=== PATIENT | male | born 1945 | race Caucasian/White ===

== ENCOUNTER 2024-03-19 04:15 | Emergency (ER) | payer MEDICARE, BC, SELFPAY ==
--- OUTSIDE RECORDS SUMMARY | 2024-03-19 04:17 | XMS_ITS | Continuity of Care Document ---
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
[2024-03-19 04:27] VITALS: BP 143/86; PULSE 77; RESP 16; TEMP 36.6; O2SAT 97; BMI 24.4
[2024-03-19 04:30] LABS: Appearance Urine Slightly Cloudy (Clear); Bilirubin Urine 3+ (Negative); Blood Urine 3+ (Negative); Color Urine Red (Yellow); Glucose Urine Negative (Negative); Ketones Urine 1+ (Negative); Leukocyte Esterase Urine 3+ (Negative); Nitrite Urine Positive (Negative); Protein Urine 3+ (Negative); Specific Gravity Urine 1.015 (1.000-1.030); pH Urine 5.5 (5.0-8.5)
[2024-03-19 04:32] LABS: Bacteria Urine Moderate; RBC Urine >100 (0-2); WBC Urine 25-50 (0-5)
--- NOTE | 2024-03-19 04:35 | ED.MALEGU ---
HPI - Male Genitourinary General Time Seen by Provider: 04:35 Date Seen: 03/19/24 Chief complaint: Urogenital Problems, Male Stated complaint: either a kidney stone or UTI Time Seen by Provider: 03/19/24 04:21 Source: patient and RN notes reviewed Mode of arrival: ambulatory Limitations: no limitations History of Present Illness HPI Narrative: This 78 year old male is coming in with onset of urinary frequency, dysuria and subsequent hematuria starting around midnight. He has a history of urinary tract infections, has never had a kidney stone. He was wondering if it possibly could be a kidney stone because of the progression of the rapid development of blood in the urine. He is having no back pain, no abdominal pain, no fevers, no nausea. He got up to urinate around midnight in then started having frequency and burning with urination. He went to the bathroom a few times and then started noticing blood in the blood has rapidly progressed in its intensity. He denies any history of kidney problems. 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 He is on no blood thinners. Patient has never been to our facility before. He has no records through [facility] either. Related Data Home Medications ?Medication ?Instructions ?Recorded ?Confirmed atorvastatin .ROUTE 03/19/24 lisinopril 20 mg tablet 20 mg PO DAILY 03/19/24 03/19/24 Allergies Allergy/AdvReac Type Severity Reaction Status Date / Time Penicillins Allergy Mild Rash Verified 03/19/24 04:31 Review of Systems Narrative: As per HPI. Exam Const: Vital Signs, click to edit/add: Vital Signs - 24 hr 03/19/24 04:27 Temperature 97.8 F Pulse Rate [Pulse Oximeter] 77 Respiratory Rate 16 Blood Pressure [Ri ght Upper Arm] 143/86 H Pulse Oximetry 97 Oxygen Delivery Me thod Room Air This patient is ambulatory into the ED, gait normal. He is alert, interactive, no apparent distress. Sclera clear, speech normal, wearing a mask. Lungs are clear, good air entry, no wheezing or crackles. No CVA tenderness. Pacemaker left anterior chest wall. CV regular rate and rhythm, no murmur, normal S1-S2. Abdomen is soft, nontender, nondistended, no organomegaly, no rebound or guarding. Documenting provider has reviewed patient's vital signs: yes Course Course ED Course: Patient's urinalysis is back in definitely is showing hemorrhagic UTI. We will culture this. He clinically seems quite find to be able to take course of oral antibiotics. Given male status, age and penicillin allergy, will consider covering with Cipro. Vital Signs Vital signs: Initial Vital Signs Temperature 97.8 F 03/19/24 04:27 Temperature Source Temporal Artery Scan 03/19/24 04:27 Pulse Rate 77 03/19/24 04:27 Respiratory Rate 16 03/19/24 04:27 Blood Pressure 143/86 H 03/19/24 04:27 Blood Pressure Mean 105 03/19/24 04:27 Blood Pressure Position Sitting 03/19/24 04:27 Pulse Oximetry 97 03/19/24 04:27 Oxygen Delivery Method Room Air 03/19/24 04:27 Vital Signs Temperature 97.8 F 03/19/24 04:27 Pulse Rate 77 03/19/24 04:27 Respiratory Rate 16 03/19/24 04:27 Blood Pressure 143/86 H 03/19/24 04:27 Pulse Oximetry 97 03/19/24 04:27 Oxygen Delivery Method Room Air 03/19/24 04:27 Temperature 97.8 F 03/19/24 04:27 Pulse Rate 77 03/19/24 04:27 Respiratory Rate 16 03/19/24 04:27 Blood Pressure 143/86 H 03/19/24 04:27 Pulse Oximetry 97 03/19/24 04:27 Oxygen Delivery Method Room Air 03/19/24 04:27 MDM - Male Genitourinary Lab Data Attestation: I reviewed the patient's lab results. Labs: Lab Results 03/19/24 Range/Units 04:28 Urine Color Red A (Yellow) Urine Appearance Slightly Cloudy A (Clear) Urine pH 5.5 (5.0-8.5) Ur Specific [place] 1.015 (1.000-1.030) Urine Protein 3+ A (Negative) Urine Glucose (UA) Negative (Negative) Urine Ketones 1+ A (Negative) Urine Blood 3+ A (Negative) Urine Nitrite Positive A (Negative) Urine Bilirubin 3+ A (Negative) Urine Urobilinogen 2.0 A (0.2-1.0) Ur Leukocyte Esterase 3+ A (Negative) Urine RBC >100 A (0-2) Urine WBC 25-50 A (0-5) Ur Squamous Epith Cells None (None-Few) Urine Bacteria Moderate A (None) Discharge Plan Discharge Clinical Impression: Urinary tract infection Qualifiers: Urinary tract infection type: acute cystitis Hematuria presence: with hematuria Qualified Code(s): N30.01 - Acute cystitis with hematuria Patient Disposition: Home, Self-Care Condition: Stable Instructions: Urinary Tract Infection in Men (ED) Additional Instructions: Start Cipro now, take 500 mg twice daily for 7 days. Drink plenty of fluids. If you are not improving in your symptoms in the next 24-48 hours, worsen at any point, develop abdominal pain, develop fever, develop vomiting or other concerns, do need to be re-evaluated. We will culture the urine to make sure you are on the appropriate antibiotic and will contact you if there is any need to change antibiotics. Activity Level: Activity as Tolerated Prescriptions: No Action lisinopril 20 mg tablet 20 mg PO DAILY atorvastatin .ROUTE Stand Alone Forms: [employer] Info Instructions
--- OUTSIDE RECORDS SUMMARY | 2024-03-19 05:16 | XMS_ITS | Continuity of Care Document ---
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
--- OUTSIDE RECORDS SUMMARY | 2024-03-19 05:16 | XMS_ITS | Clinical Summary ---
Author Organization [facility] Address [address] [place] [address]. [place] [address] Care Team Providers Care Corn Chip Maker Name Role Phone Ansley Denney MD Primary Care Provider [phone] Ansley Denney MD Unavailable [phone] Lan Ledbetter MD Unavailable [phone] Allergies Active Allergy Reactions Criticality Noted Date Comments Penicillins Hives 02/01/2012 Childhood Medications aspirin-acetamino phen-caffeine (EXCEDRIN MIGRAINE) 250-250-65 mg per tablet [ASPIRIN-ROHIT TAMINOPHEN-C AFFEINE (EXCEDRIN MIGRAINE) 250-250-65 MG PER TABLET] Take 1 tablet by mouth every 6 (six) hours as needed for pain. 05/27/19 19 Active acetaminophen (TYLENOL) 325 MG tablet [ACETAMINOPH EN (TYLENOL) 325 MG TABLET] Take 650 mg by mouth every 6 (six) hours as needed for pain. 05/27/19 19 Active glucosamine-chond roitin 500-400 mg tablet Take 1 tablet by mouth daily 02/19/20 20 Active magnesium oxide 250 mg magnesium Tab [MAGNESIUM OXIDE 250 MG MAGNESIUM TAB] Take by mouth. 02/19/20 20 Active multivit-min/ferr ous fumarate (MULTI VITAMIN ORAL) [MULTIVIT-NY N/FERROUS FUMARATE (MULTI VITAMIN ORAL)] Take by mouth. 02/19/20 20 Active ascorbic acid, vitamin C, (VITAMIN C) 1000 MG tablet [ASCORBIC ACID, VITAMIN C, (VITAMIN C) 1000 MG TABLET] Take 1,000 mg by mouth daily. 02/19/20 20 Active [place]-3 Fatty Acids (FISH OIL PO) Take 2,400 mg by mouth daily 09/30/19 22 Active loratadine (CLARITIN) 10 MG tablet Take 10 mg by mouth daily Active atorvastatin (LIPITOR) 20 MG tabletIndications :Nonrheumatic mitral valve regurgitation Take 1 tablet (20 mg) by mouth daily 90 tablet 3 06/07/19 24 Active ezetimibe (ZETIA) 10 MG tabletIndications :Mixed hyperlipidemia Take 1 tablet (10 mg) by mouth daily 90 tablet 3 06/07/19 24 Active famotidine (PEPCID) 20 MG tabletIndications :Gastroesophageal reflux disease without esophagitis TAKE 1 TABLET BY MOUTH 2 TIMES A DAY NEEDED FOR HEARTBURN. 180 tablet 3 08/24/19 24 Active SUMAtriptan (IMITREX) 100 MG tabletIndications :Migraine without aura and without status migrainosus, not intractable TAKE 1/2 TO 1 TABLET BY MOUTH EVERY 2 HOURS NEEDED FOR MIGRAINE (MAX OF 200 MG/24 HOURS). 18 tablet 2 08/24/19 24 Active lisinopril (ZESTRIL) 5 MG tabletIndications :Benign essential hypertension,Abdo bárbara aortic aneurysm dissection (H) TAKE 1 TABLET BY MOUTH EVERY DAY 90 tablet 02/29/20 24 Active lisinopril (ZESTRIL) 5 MG tabletIndications :Benign essential hypertension,Abdo bárbara aortic aneurysm dissection (H) TAKE 1 TABLET BY MOUTH EVERY DAY 90 tablet 1 09/10/19 24 024 Discontinued Active Problems Problem Noted Date Diagnosed Date Ascending aorta dilatation 05/25/2023 Nonrheumatic aortic valve insufficiency 05/25/19 24 Abdominal aortic aneurysm dissection 07/22/2022 Mitral valve regurgitation 01/21/2021 Congenital insufficiency of aortic valve 021 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 01/21/2021 Complete heart block 10/16/2020 Abnormal echocardiogram 10/16/2020 Essential hypertension 10/16/2020 Syncope 10/10/2020 Hyperlipidemia 07/18/2014 Peripheral Neuropathy Overview (08/04/2021): Created by Conversion Replacement Utility updated for latest IMO load Created by Conversion Replacement Utility updated for latest IMO load Snoring (Symptom) Overview (08/13/2020): Created by Conversion Prediabetes Overview (08/13/2020): Created by Conversion Common Migraine (Without Aura) Overview (08/04/2021): Created by Conversion Replacement Utility updated for latest IMO load Created by Conversion Replacement Utility updated for latest IMO load Esophageal Reflux Overview (08/13/2020): Created by Conversion Diverticulitis of colon Overview (08/04/2021): Created by Conversion Replacement Utility updated for latest IMO load Created by Conversion Replacement Utility updated for latest IMO load Resolved Problems Problem Noted Date Diagnosed Date Resolved Date SVT (supraventricular tachycardia) 01/21/2021 01/21/2021 Essential hypertension 10/10/202010/15 CKD (chronic kidney disease) stage 2, GFR 60-89 ml/min 02/12/2015 10/15/2020 Anemia 02/12/2015 08/04/2021 BPH (benign prostatic hyperplasia) 08/04/2021 Overview (08/13/2020): Created by Conversion Cervicalgia 07/30/2021 Overview (08/13/2020): Created by Conversion Incomplete Emptying Of Bladder 08/04/2021 Overview (08/13/2020): Created by Conversion Joint Pain, Localized In The Shoulder 07/30/2021 Overview (08/13/2020): Created by Conversion Encounters Date Type Department Care Team Description 03/15/2024 [facility] [address] [place] [address] Odilon Cleaning DO 03/14/2024 Ancillary Procedure [address] [place] [phone] Nathan Drummond MD Pacemaker; Sick sinus syndrome (H); Complete heart block (H) 03/08/2024 7:46 AM SENIOR ATTORNEY - 03/08/2024 11:59 PM SENIOR ATTORNEY Hospital Encounter [address] [address] Odilon Cleaning DO Discharge Disposition: Home or Self Care 03/08/2024 [facility] Medical Advice [address] [place] [address] Odilon Cleaning DO 03/08/2024 Travel 03/04/2024 [facility] Medical Advice [address] [place] [address] Odilon Cleaning DO CAD (coronary artery disease) (Primary Dx); HLD (hyperlipidemia); HTN (hypertension); Coronary artery calcification seen on CT scan 03/04/2024 [facility] Medical Advice [place] [address] [address] [place] [address] Lan Ledbetter MD 02/28/[address] [place] [address] Odilon Cleaning DO Medication Refill from Last 3 Months Immunizations Name Administration Dates Next Due Flu, Unspecified 12/28/2015 Influenza (High Dose) Trival ent,PF (Fluzone) 11/30/2018,01/05/2015 Influenza (IIV3) PF 12/10/2011,12/03/2010 Influenza (prior to 2023) 12/24/2016,12/28/2015 Influenza Vaccine 65+ (Fluzone HD) 12/06/2021,,12/14/2019 Influenza Vaccine >6 months,quad, PF 01/10/2018 Pneumo Conj 13-V (2010&after) 12/12/2014 Pneumococcal 23 valent 03/25/2016 TDAP (Adacel,Boostrix) 07/18/2014 Zoster recombinant adjuvanted (SHINGRIX) 020,07/06/2018 Zoster vaccine, live 07/18/2014 Family History Medical History Relation Comments Heart Disease Father Dementia Mother Hypertension Mother Osteoporosis Mother Relation Status Comments Father Mother Social History Tobacco Use Types Packs/Day Years Used Date Smoking Tobacco: Never Passive Smoke Exposure: Never Smokeless Tobacco: Never Tobacco Cessation:Counseling Given: Not Answered Alcohol Use Standard Drinks/Week Comments Yes 0 (1 standard drink = 0.6 oz pure alcohol) Alcoholic Drinks/day: 1 glass wine daily Social Connection and Isolation Panel [NHANES] A nswer Date Recorded Frequency of Communication with Friends and Fami ly Not on file 08/19/2023 How often do you get together with friends or re latives? Once a week 08/19/2023 Attends Denominational Services Not on file 08/18 Active Member of Clubs or Organizations Not on f ile 08/19/2023 Attends Club or Organization Meetings Not on benjie e 08/19/2023 Marital Status Not on file 08/19/2023 PHQ-2 Answer Date Recorded PHQ-2 Score 0 08/24/2023 [facility] Occupat ional Health - Occupational Stress Questionnaire Answer Date Recorded Do you feel stress - tense, restless, nervous, or anxious, or unable to sleep at night because your mind is troubled all the time - these days? Not at all 08/19/2023 Exercise Vital Sign Answer Date Recorde d On average, how many days pe r week do you engage in moderate to strenuous exercise (like a brisk walk)? 5 days 08/19/2023 On average, how many minutes do you engage in exercise at this level? 30 min 08/19/2023 Adolescent Education Answer Date Record ed Getting School Help Needed Not on file 11/21 Food Insecurity Answer Date Recorded Within the past 12 months, d id you worry that your food would run out before you got money to buy more? No 08/19/2023 Within the past 12 months, d id the food you bought just not last and you didn t have money to get more? No 08/19/2023 Housing Stability Answer Date Recorded Do you have housing? (Isidra menjivar is defined as stable permanent housing and does not include staying ouside in a car, in a tent, in an abandoned building, in an overnight long term, or couch-surfing.) Yes 08/19/2023 Are you worried about losing your housing? No 08/19/2023 Financial Resource Strain Answer Date R ecorded Within the past 12 months, h ave you or your family members you live with been unable to get utilities (heat, electricity) when it was really needed? No 08/19/2023 Transportation Needs Answer Date Record ed Within the past 12 months, h as lack of transportation kept you from medical appointments, getting your medicines, non-medical meetings or appointments, work, or from getting things that you need? No 08/19/2023 Interpersonal Safety Answer Date Record ed Do you feel physically and e motionally safe where you currently live? Yes 08/24/2023 Within the past 12 months, h ave you been hit, slapped, kicked or otherwise physically hurt by someone? No 08/24/2023 Within the past 12 months, h ave you been humiliated or emotionally abused in other ways by your partner or ex-partner? No 08/24/2023 Sex and Gender Information Value Date Recorded Sex Assigned at Not on file Legal Sex Male 5:14 PM CDT Gender Identity Not on file Sexual Orientation Straight 08/09/2023 8: 33 AM CDT Travel History Travel Start Travel End [place] 02/22/2024 03/07/2024 Last Filed Vital Signs Vital Sign Reading Time Taken Comments Blood Pressure 136/70 08/24/2023 12:45 PM CDT Pulse 61 08/24/2023 12:45 PM CDT Temperature 36.8 C (98.2 F) 08/24/2023 12:45 PM CDT Respiratory Rate 16 08/24/2023 12:45 PM CDT Oxygen Saturation 97% 08/24/2023 12:45 PM CDT Inhaled Oxygen Concentration - - Weight 79.8 kg (176 lb) 08/24/2023 12:45 PM CDT Height 180.3 cm (5' 11) 08/24/2023 12:45 PM CDT Body Mass Index 24.55 08/24/2023 12:45 PM CDT Plan of Treatment Upcoming Encounters Date Type Department Care Team (Late st Contact Info) Description 05/26/2024 1:00 PM CDT Ancillary Procedure [address], [address] [place] [phone] Nathan Drummond MD [address] [place] [phone] 05/26/2024 2:20 PM CDT Office Visit [address] [place] [phone] Nathan Drummond MD [address] [place] [phone] Odilon Cleaning, DO [address] [place] [address] Health Maintenance Due Date Last Done Comments RSV VACCINE (1 - 1-dose 75+ series) 2021 PHQ-2 (once per calendar year) 2024 08/24/2023, 08/18/2023, 08/11/2022, Additional history exists DTAP/TDAP/TD IMMUNIZATION (2 - Td or Tdap) 07/18/2024 07/18/2014 ANNUAL REVIEW OF HM ORDERS 08/23/2024 08/24/2023, BMP 08/23/2024 08/24/2023, 07/30, 07/30/2021, Additional history exists FALL RISK ASSESSMENT 08/23/2024 08/24/2023, 08/11/2022, 07/22/2022, Additional history exists LIPID 08/23/2024 08/24/2023, 07/30, 07/30/2021, Additional history exists MEDICARE ANNUAL WELLNESS VISIT 08/23/2024 08/24/2023, 08/11/2022, 07/30/2021, Additional history exists GLUCOSE 08/23/2026 08/24/2023, 07/30, 07/30/2021, Additional history exists ADVANCE CARE PLANNING 08/18/2027 08/17/2022 , 08/04/2021, 02/19/2020, Additional history exists Pneumococcal Vaccine: 50+ Years Completed 03/25/2016, 12/12/2014 ZOSTER IMMUNIZATION Completed 03/27/2019, 07/06/2018, 07/18/2014 COLONOSCOPY Discontinued 04/04/2021, 12/24/2008 COLORECTAL CANCER SCREENING Discontinued HEPATITIS C SCREENING Completed 07/30/2021 COVID-19 Vaccine Completed 10/31/2023, 06/2023, 02/08/2022, Additional history exists INFLUENZA VACCINE Completed 10/31/2023, , 12/26/2020, Additional history exists CT COLONOGRAPHY Discontinued FIT Discontinued FLEX SIG Discontinued HPV IMMUNIZATION Aged Out No longer e ligible based on patient's age to complete this topic MENINGITIS IMMUNIZATION Aged Out No l onger eligible based on patient's age to complete this topic RSV MONOCLONAL ANTIBODY Aged Out No l onger eligible based on patient's age to complete this topic sDNA (Cologuard) Discontinued Medical Devices Implanted Type Area Blanchard Grinder Operator Device Identifier Shelf Expiration Date Model / Serial / Lot Imp Lead Pacing Bipolar Capsurefix Novus 52cm 5076-52 - [id number] Implanted:Qty : 1 on 10/16/2020 by Zbigniew Arreaga MD at [facility] Leads N/A: Right Atrium [employer] 08/22/2022 5076-52 / [id number] / [id number] Imp Lead Pacing Bipolar Capsurefix Novus 58cm 5076-58 - [id number] Implanted:Qty : 1 on 10/16/2020 by Zbigniew Arreaga MD at [facility] Leads N/A: Right Ventricle [employer] 08/06/2022 5076-58 / [id number] / [id number] Medtronic I* 5076 Capsurefix Novus Mri Surescan [id number] Implanted: (Quantity not on file) Leads [employer] 5076 CAPSUREFIX NOVUS MRI SURESCAN / [id number] / Medtronic I* 5076 Capsurefix Novus Mri Surescan [id number] Implanted: (Quantity not on file) Leads [employer] 5076 CAPSUREFIX NOVUS MRI SURESCAN / [id number] / Pacemaker [place] Mri Xt - [id number] Implanted:Qty : 1 on 10/16/2020 by Zbigniew Arreaga MD at [facility] Pacemaker [employer] 02/11/2022 [id number] / [id number] / [id number] Procedures Procedure Name Priority Date/Time Associated Diagnosis Comments INTERROGATION DEVICE EVAL REMOTE PACER UP TO 90 DAYS Routine 03/14/2024 10:23 AM SENIOR ATTORNEY Pacemaker Sick sinus syndrome (H) Complete heart block (H) ECHO EXERCISE STRESS TEST WITH CONTRAST Routine 03/08/2024 9:03 AM SENIOR ATTORNEY CAD (coronary artery disease) HLD (hyperlipidemia) HTN (hypertension) Coronary artery calcification seen on CT scan LIPID REFLEX TO DIRECT LDL PANEL Routine 08/24/2023 1:49 PM CDT Mixed hyperlipidemia COMPREHENSIVE METABOLIC PANEL Routine 08/24/2023 1:49 PM CDT Essential hypertension HEPATITIS C SCREEN REFLEX TO HCV RNA QUANT AND GENOTYPE Routine 07/30/2021 12:29 PM CDT Need for hepatitis C screening test COLONOSCOPY - HIM SCAN 04/04/2021 12:00 AM SENIOR ATTORNEY from Last 3 Months or Most Recently Relevant to Health Maintenance Results * INTERROGATION DEVICE EVAL REMOTE PACER UP TO 90 DAYS (03/14/2024 10:23 AM SENIOR ATTORNEY) Date Time Interrogation Session [id number] [employer] Implantable Pulse Generator Blanchard Grinder Operator Medtronic [employer] Implantable Pulse Generator Model [id number] Nery XT MRI [employer] Implantable Pulse Generator Serial Number [id number] [employer] Type Interrogation Session Remote Scheduled [employer] Clinic [facility] [employer] Implantable Pulse Generator Type Pacemaker [employer] Implantable Pulse Generator Implant Date 20201016 [employer] Implantable Lead Blanchard Grinder Operator Medtronic [employer] Implantable Lead Model 5076 CapSureFix Novus MRI SureScan [employer] Implantable Lead Serial Number [id number] [employer] Implantable Lead Implant Date 20201016 [employer] Implantable Lead Polarity Type Bipolar Lead [employer] Implantable Lead Location Detail 1 UNKNOWN [employer] Implantable Lead Location Right Atrium [employer] Implantable Lead Connection Status Connected [employer] Implantable Lead Blanchard Grinder Operator Medtronic [employer] Implantable Lead Model 5076 CapSureFix Novus MRI SureScan [employer] Implantable Lead Serial Number [id number] [employer] Implantable Lead Implant Date 20201016 [employer] Implantable Lead Polarity Type Bipolar Lead [employer] Implantable Lead Location Detail 1 UNKNOWN [employer] Implantable Lead Special Function 58cm [employer] Implantable Lead Location Right Ventricle [employer] Implantable Lead Connection Status Connected [employer] [place] Setting Mode (NBG Code) MVP_[id number] [employer] [place] Setting Lower Rate Limit 50 {beats}/ min [employer] [place] Setting Maximum Tracking Rate 130 {beats}/ min [employer] [place] Setting Maximum Sensor Rate 130 {beats}/ min [employer] [place] Setting Hysterisis Rate DISABLED [employer] [place] Setting Night Rate 40 {beats}/ min [employer] [place] Setting PILLO Delay Low 150 ms [employer] [place] Setting PAV Delay Low 180 ms [employer] [place] Setting AT Mode Switch Rate 171 {beats}/ min [employer] Lead Channel Setting Sensing Polarity Bipolar [employer] Lead Channel Setting Sensing Anode Location Right Atrium [employer] Lead Channel Setting Sensing Anode Terminal Ring [employer] Lead Channel Setting Sensing Cathode Location Right Atrium [employer] Lead Channel Setting Sensing Cath[place] Terminal Tip [employer] Lead Channel Setting Sensing Sensitivity 0.45 mV [employer] Lead Channel Setting Sensing Polarity Bipolar [employer] Lead Channel Setting Sensing Anode Location Right Ventricle [employer] Lead Channel Setting Sensing Anode Terminal Ring [employer] Lead Channel Setting Sensing Cathode Location Right Ventricle [employer] Lead Channel Setting Sensing [place] Terminal Tip [employer] Lead Channel Setting Sensing Sensitivity 0.9 mV [employer] Lead Channel Setting Pacing Polarity Bipolar [employer] Lead Channel Setting Pacing Anode Location Right Atrium [employer] Lead Channel Setting Pacing Anode Terminal Ring [employer] Lead Channel Setting Sensing Cathode Location Right Atrium [employer] Lead Channel Setting Sensing Cath[place] Terminal Tip [employer] Lead Channel Setting Pacing Pulse Width 0.4 ms [employer] Lead Channel Setting Pacing Amplitude 1.5 V [employer] Lead Channel Setting Pacing Capture Mode Adaptive [employer] Lead Channel Setting Pacing Polarity Bipolar [employer] Lead Channel Setting Pacing Anode Location Right Ventricle [employer] Lead Channel Setting Pacing Anode Terminal Ring [employer] Lead Channel Setting Sensing Cathode Location Right Ventricle [employer]IC Lead Channel Setting Sensing Cath[place] Terminal Tip [employer] Lead Channel Setting Pacing Pulse Width 0.4 ms [employer] Lead Channel Setting Pacing Amplitude 1.5 V [employer] Lead Channel Setting Pacing Capture Mode Adaptive MEDTRON[employer] Zone Setting Type Category VF [employer]IC Zone Setting Vendor Type Category V High Rate [employer] Zone Setting Type Category VT [employer]TR[employer]IC Zone Setting Vendor Type Category FastVT [employer]ONIC Zone Setting Type Category VT [employer]TR[employer]IC Zone Setting Vendor Type Category VT [employer]TR[employer]IC Zone Setting Type Category VT [employer]TR[employer]IC Zone Setting Vendor Type Category MonVT [employer]IC Zone Setting Status Monitor [employer]IC Zone Setting Detection Interval 400 ms MEDTRONIC Zone Setting Type Category ATRIAL_FIBRILLATI ON MEDTRONIC Zone Setting Vendor Type Category FastATAF [employer] Zone Setting Status Monitor [employer]IC Zone Setting Detection Interval 200 ms MEDTR[employer]IC Zone Setting Type Category AT/AF [employer] Zone Setting Status Active [employer] Zone Setting Detection Interval 350 ms MEDTRONIC Zone Setting Type Category BRADYCARDIA [employer]IC Lead Channel Impedance Value 418 ohm [employer] Lead Channel Impedance Value 342 ohm [employer] Lead Channel Sensing Intrinsic Amplitude 3.5 mV [employer] Lead Channel Sensing Intrinsic Amplitude 3.5 mV [employer] Lead Channel Pacing Threshold Amplitude 0.25 V [employer] Lead Channel Pacing Threshold Pulse Width 0.4 ms [employer] Lead Channel Impedance Value 456 ohm [employer] Lead Channel Impedance Value 342 ohm [employer] Lead Channel Sensing Intrinsic Amplitude 8.125 mV [employer] Lead Channel Sensing Intrinsic Amplitude 8.125 mV [employer] Lead Channel Pacing Threshold Amplitude 0.625 V [employer] Lead Channel Pacing Threshold Pulse Width 0.4 ms [employer] Battery Date Time of Measurements [id number] [employer] Battery Status OK [employer] Battery COMMUNITY OUTREACH DIRECTOR Trigger 2.625 [employer] Battery Remaining Longevity 141 mo [employer] Battery Voltage 3.02 V [employer] Lupillo Statistic Date Time Start [id number] [employer] [place] Statistic Date Time End [id number] [employer] [place] Statistic RA Percent Paced 12.24 % [employer] [place] Statistic RV Percent Paced 95.07 % [employer] [place] Statistic AP COMPUTER METEOROLOGIST Percent 11.34 % [employer] [place] Statistic COMPUTER METEOROLOGIST Percent 83.73 % [employer] [place] Statistic AP VS Percent 0.54 % [employer] [place] Statistic VS Percent 4.39 % [employer] Atrial Tachy Statistic Date Time Start [id number] [employer] Atrial Tachy Statistic Date Time End [id number] [employer] Atrial Tachy Statistic AT/AF [place] Percent 0 % [employer] Therapy Statistic Recent Date Time Start [id number] [employer] Therapy Statistic Recent Date Time End [id number] [employer] Therapy Statistic Total Date Time Start [id number] [employer] Therapy Statistic Total Date Time End [id number] [employer] Episode Statistic Recent Count 0 [employer] Episode Statistic Type Category AT/AF [employer] Episode Statistic Recent Count 0 [employer]IC Episode Statistic Type Category Patient Activated [employer] Episode Statistic Recent Count 0 [employer]TR[employer]IC Episode Statistic Type Category SVT [employer] Episode Statistic Recent Count 1 [employer]IC Episode Statistic Type Category VT [employer]TR[employer]IC Episode Statistic Recent Count 0 MEDTRONIC Episode Statistic Type Category VT [employer]TR[employer]IC Episode Statistic Recent Date Time Start [id number] [employer] Episode Statistic Recent Date Time End [id number] [employer] Episode Statistic Recent Date Time Start [id number] [employer] Episode Statistic Recent Date Time End [id number] [employer] Episode Statistic Recent Date Time Start [id number] [employer] Episode Statistic Recent Date Time End [id number] [employer] Episode Statistic Recent Date Time Start [id number] [employer] Episode Statistic Recent Date Time End [id number] [employer] Episode Statistic Recent Date Time Start [id number] [employer] Episode Statistic Recent Date Time End [id number] [employer]IC Episode Statistic Total Count 0 [employer]IC Episode Statistic Type Category AT/AF [employer] Episode Statistic Total Count 0 [employer] Episode Statistic Type Category Patient Activated [employer] Episode Statistic Total Count 293 [employer] Episode Statistic Type Category SVT [employer] Episode Statistic Total Count 23 [employer]IC Episode Statistic Type Category VT [employer]TR[employer]IC Episode Statistic Total Count 0 [employer]TR[employer]IC Episode Statistic Type Category VT [employer] Episode Statistic Total Date Time Start [id number] [employer]TR[employer]IC Episode Statistic Total Date Time End [id number] [employer]IC Episode Statistic Total Date Time Start [id number] [employer]IC Episode Statistic Total Date Time End [id number] [employer] Episode Statistic Total Date Time Start [id number] [employer]IC Episode Statistic Total Date Time End [id number] [employer]IC Episode Statistic Total Date Time Start [id number] [employer] Episode Statistic Total Date Time End [id number] [employer] Episode Statistic Total Date Time Start [id number] [employer]IC Episode Statistic Total Date Time End [id number] [employer] Episode Identifier 321 [employer] Episode Type Category VT [employer] Episode Date Time [id number] [employer] Episode Duration 1 s [employer] Anatomical Region Laterality Modality Other 03/14/2024 3:46 AM SENIOR ATTORNEY Narrative 03/15/2024 4:23 PM SENIOR ATTORNEY Encounter Type: routine remote pacemaker transmission. Device: Medtronic [place] Pacing % /Programmed: AP 12%, COMPUTER METEOROLOGIST 95% at AAI<=>DDD 50/130 ppm. Lead(s): stable. Battery longevity: 11yrs, 9mo estimated. Presenting: -COMPUTER METEOROLOGIST 45 bpm. Atrial high rates: since 11/26/23; none detected. Anticoagulant: None. Ventricular High rates: since 11/26/23; one ventricular high rate episode, appears to be NSVT 5bts. Comments: Normal device function. Plan: Patient scheduled for annual device check on 05/26/24 at 1:00PM at our [facility] location. [place] Martinezec, Device Specialist Device follow up for the entirety of having the Pacemaker, based on best practices determined by [employer] and in Compliance with Medicare guidelines. Continue remote device monitoring per patient plan. I have reviewed and interpreted the device interrogation, settings, programming, and encounter summary. The device is functioning within normal device parameters. I agree with the current findings, assessment and plan. Nathan Drummond MD [facility] ORDERAB LES Final Result * ECHO EXERCISE STRESS TEST WITH CONTRAST (03/08/2024 9:03 AM SENIOR ATTORNEY) [facility] Pharmacologic Protocol Stress Echo CARDIOLOGY RESULTS Test Type Treadmill CARDIOLOGY RESULTS Baseline HR 69 CARDIOLO GY RESULTS Baseline Systolic BP 156 CARDIOLOGY RESULTS Baseline Diastolic BP 79 CARDIOLOGY RESULTS Last Stress HR 128 CARDI OLOGY RESULTS Last Stress Systolic BP 168 CARDIOLOGY RESULTS Last Stress Diastolic BP 82 CARDIOLOGY RESULTS Target HR 122 CARDIOLOGY RESULTS PERCENT HR 85% CARDIOLOG Y RESULTS Exercise duration (min) 6 CARDIOLOGY RESULTS Exercise duration (sec) 30 CARDIOLOGY RESULTS Estimated workload 8.0 CARDIOLOGY RESULTS Pharm Test Reason Stopped CARDIOLOGY RESULTS Pharmacologic Symptoms CARDIOLOGY RESULTS Exercise Stage Reached CARDIOLOGY RESULTS ST Deviation Elevation V4 7.5mm CARDIOLOGY RESULTS Deviation Time II -3.8mm CARDI OLOGY RESULTS ST Elevation Amount V3 9.9mm CARDIOLOGY RESULTS ST Deviation Amount he II -5.2mm CARDIOLOGY RESULTS Final Resting BP 138/77 CAR DIOLOGY RESULTS Final Resting HR 68 CAR DIOLOGY RESULTS Max Treadmill Speed 3.4 CARDIOLOGY RESULTS Max Treadmill Grade 14.0 CARDIOLOGY RESULTS Peak Systolic BP 168/82 CAR DIOLOGY RESULTS Peak Diastolic BP 154/85 CA RDIOLOGY RESULTS Max HR 130 CARDIOLOGY RESULTS Stress Phase Resting CARDIOL OGY RESULTS Stress Resting Pt Position SUPINE CARDIOLOGY RESULTS Current HR 70 CARDIOLOG Y RESULTS Current BP 156/79 CARDIOLOG Y RESULTS Stress Phase Resting CARDIOL OGY RESULTS Stress Resting Pt Position STANDING CARDIOLOGY RESULTS Current HR 70 CARDIOLOG Y RESULTS Current BP 156/79 CARDIOLOG Y RESULTS Stress Phase Resting CARDIOL OGY RESULTS Stress Resting Pt Position MANUAL EVENT CARDIOLOGY RESULTS Current HR 123 CARDIOLOG Y RESULTS Current BP 168/82 CARDIOLOG Y RESULTS Stress Phase Stress CARDIOL OGY RESULTS Stage Minute EXE 00:00 CARDIOL OGY RESULTS Exercise Stage STAGE 1 CARDI OLOGY RESULTS Current HR 71 CARDIOLOG Y RESULTS Current BP 147/71 CARDIOLOG Y RESULTS Stress Phase Stress CARDIOL OGY RESULTS Stage Minute EXE 01:00 CARDIOL OGY RESULTS Exercise Stage STAGE 1 CARDI OLOGY RESULTS Current HR 91 CARDIOLOG Y RESULTS Current BP 147/71 CARDIOLOG Y RESULTS Stress Phase Stress CARDIOL OGY RESULTS Stage Minute EXE 02:00 CARDIOL OGY RESULTS Exercise Stage STAGE 1 CARDI OLOGY RESULTS Current HR 113 CARDIOLOG Y RESULTS Current BP 147/71 CARDIOLOG Y RESULTS Stress Phase Stress CARDIOL OGY RESULTS Stage Minute EXE 02:03 CARDIOL OGY RESULTS Exercise Stage STAGE 1 CARDI OLOGY RESULTS Current HR 114 CARDIOLOG Y RESULTS Current BP 162/78 CARDIOLOG Y RESULTS Stress Phase Stress CARDIOL OGY RESULTS Stage Minute EXE 03:00 CARDIOL OGY RESULTS Exercise Stage STAGE 2 CARDI OLOGY RESULTS Current HR 116 CARDIOLOG Y RESULTS Current BP 162/78 CARDIOLOG Y RESULTS Stress Phase Stress CARDIOL OGY RESULTS Stage Minute EXE 04:00 CARDIOL OGY RESULTS Exercise Stage STAGE 2 CARDI OLOGY RESULTS Current HR 118 CARDIOLOG Y RESULTS Current BP 162/78 CARDIOLOG Y RESULTS Stress Phase Stress CARDIOL OGY RESULTS Stage Minute EXE 04:34 CARDIOL OGY RESULTS Exercise Stage STAGE 2 CARDI OLOGY RESULTS Current HR 120 CARDIOLOG Y RESULTS Current BP 168/82 CARDIOLOG Y RESULTS Stress Phase Stress CARDIOL OGY RESULTS Stage Minute EXE 05:00 CARDIOL OGY RESULTS Exercise Stage STAGE 2 CARDI OLOGY RESULTS Current HR 121 CARDIOLOG Y RESULTS Current BP 168/82 CARDIOLOG Y RESULTS Stress Phase Stress CARDIOL OGY RESULTS Stage Minute EXE 05:14 CARDIOL OGY RESULTS Exercise Stage STAGE 2 CARDI OLOGY RESULTS Current HR 123 CARDIOLOG Y RESULTS Current BP 168/82 CARDIOLOG Y RESULTS Stress Phase Stress CARDIOL OGY RESULTS Stage Minute EXE 06:00 CARDIOL OGY RESULTS Exercise Stage STAGE 3 CARDI OLOGY RESULTS Current HR 123 CARDIOLOG Y RESULTS Current BP 168/82 CARDIOLOG Y RESULTS Stress Phase Stress CARDIOL OGY RESULTS Stage Minute EXE 06:30 CARDIOL OGY RESULTS Exercise Stage STAGE 3 CARDI OLOGY RESULTS Current HR 128 CARDIOLOG Y RESULTS Current BP 168/82 CARDIOLOG Y RESULTS Stress Phase Recovery CARDIOL OGY RESULTS Stage Minute REC 00:29 CARDIOL OGY RESULTS Exercise Stage Recovery CARDI OLOGY RESULTS Current HR 121 CARDIOLOG Y RESULTS Current BP 168/82 CARDIOLOG Y RESULTS Stress Phase Recovery CARDIOL OGY RESULTS Stage Minute REC 01:29 CARDIOL OGY RESULTS Exercise Stage Recovery CARDI OLOGY RESULTS Current HR 84 CARDIOLOG Y RESULTS Current BP 168/82 CARDIOLOG Y RESULTS Stress Phase Recovery CARDIOL OGY RESULTS Stage Minute REC 02:09 CARDIOL OGY RESULTS Exercise Stage Recovery CARDI OLOGY RESULTS Current HR 72 CARDIOLOG Y RESULTS Current BP 154/85 CARDIOLOG Y RESULTS Stress Phase Recovery CARDIOL OGY RESULTS Stage Minute REC 02:29 CARDIOL OGY RESULTS Exercise Stage Recovery CARDI OLOGY RESULTS Current HR 82 CARDIOLOG Y RESULTS Current BP 154/85 CARDIOLOG Y RESULTS Stress Phase Recovery CARDIOL OGY RESULTS Stage Minute REC 03:25 CARDIOL OGY RESULTS Exercise Stage Recovery CARDI OLOGY RESULTS Current HR 74 CARDIOLOG Y RESULTS Current BP 150/78 CARDIOLOG Y RESULTS Stress Phase Recovery CARDIOL OGY RESULTS Stage Minute REC 03:29 CARDIOL OGY RESULTS Exercise Stage Recovery CARDI OLOGY RESULTS Current HR 78 CARDIOLOG Y RESULTS Current BP 150/78 CARDIOLOG Y RESULTS Stress Phase Recovery CARDIOL OGY RESULTS Stage Minute REC 04:29 CARDIOL OGY RESULTS Exercise Stage Recovery CARDI OLOGY RESULTS Current HR 70 CARDIOLOG Y RESULTS Current BP 150/78 CARDIOLOG Y RESULTS Stress Phase Recovery CARDIOL OGY RESULTS Stage Minute REC 04:31 CARDIOL OGY RESULTS Exercise Stage Recovery CARDI OLOGY RESULTS Current HR 72 CARDIOLOG Y RESULTS Current BP 149/78 CARDIOLOG Y RESULTS Stress Phase Recovery CARDIOL OGY RESULTS Stage Minute REC 05:29 CARDIOL OGY RESULTS Exercise Stage Recovery CARDI OLOGY RESULTS Current HR 66 CARDIOLOG Y RESULTS Current BP 149/78 CARDIOLOG Y RESULTS Stress Phase Recovery CARDIOL OGY RESULTS Stage Minute REC 05:45 CARDIOL OGY RESULTS Exercise Stage Recovery CARDI OLOGY RESULTS Current HR 66 CARDIOLOG Y RESULTS Current BP 134/75 CARDIOLOG Y RESULTS Stress Phase Recovery CARDIOL OGY RESULTS Stage Minute REC 06:29 CARDIOL OGY RESULTS Exercise Stage Recovery CARDI OLOGY RESULTS Current HR 65 CARDIOLOG Y RESULTS Current BP 134/75 CARDIOLOG Y RESULTS Stress Phase Recovery CARDIOL OGY RESULTS Stage Minute REC 07:28 CARDIOL OGY RESULTS Exercise Stage Recovery CARDI OLOGY RESULTS Current HR 67 CARDIOLOG Y RESULTS Current BP 138/77 CARDIOLOG Y RESULTS Stress Phase Recovery CARDIOL OGY RESULTS Stage Minute REC 07:29 CARDIOL OGY RESULTS Exercise Stage Recovery CARDI OLOGY RESULTS Current HR 67 CARDIOLOG Y RESULTS Current BP 138/77 CARDIOLOG Y RESULTS Stress Phase Recovery CARDIOL OGY RESULTS Stage Minute REC 08:01 CARDIOL OGY RESULTS Exercise Stage Recovery CARDI OLOGY RESULTS Current HR 68 CARDIOLOG Y RESULTS Current BP 138/77 CARDIOLOG Y RESULTS Anatomical Region Laterality Modality Ultrasound, Ultr asound, Other 03/08/2024 8:25 AM SENIOR ATTORNEY Narrative 03/08/2024 9:34 AM SENIOR ATTORNEY [id number]^MIHIR^ODILON^[place] [address] Name: OLAYINKA VEE : 1945 Study Date: 03/08/2024 08:25 AM Age: 78 yrs Gender: Male Patient Location: [facility] Reason For Study: CAD (coronary artery disease), HLD (hyperlipidemia), HTN (hypert Ordering Physician: ODILON CLEANING Referring Physician: ODILON CLEANING Performed By: YAHIR BSA: 2.0 m2 Height: 71 in Weight: 176 lb HR: 69 BP: 156/79 mmHg Procedure Stress Echo Treadmill with two dimensional, color and spectral Doppler. Definity contrast given intravenously [[facility] #[id number]]. Interpretation Summary 1. Probable normal stress echocardiogram, but with somewhat reduced specificity due to abnormal septal & anteroseptal motion both pre and postexercise undoubtedly related to ventricular pacing. 2. Normal resting LV systolic performance with an ejection fraction of 55-60%. There is overall improvement in left ventricular systolic performance with a peak ejection fraction of 70%. 3. The ECG portion of the study is nondiagnostic due to ventricular pacing throughout the entirety of the study. 4. No anginal chest pain reported with exercise. 5. Average functional capacity for age. Stress Summary: Patient exercised on the Dany protocol for a total of 6:30 minutes. Peak heart rate achieved was 128 b.p.m (90% max.) with a double- product of 20,160. The patient stopped exercise due to generalized fatigue. No chest pain symptoms were reported. Electrocardiogram: Baseline ECG reveals normal sinus rhythm. There is ventricular pacing throughout the study (A-sensed/V-paced). Occasional PVCs and 7 couplets were noted. Baseline echocardiogram: Technically adequate images were obtained in the standard quad-screen format. LV systolic performance is normal with a visually estimated ejection fraction of 55-60%.There is abnormal septal & anteroseptal motion consistent with ventricular paced rhythm. Screening Doppler interrogation suggests mild aortic insufficiency. Postexercise echocardiogram: Technically adequate images were obtained immediately post exercise in the standard quad-screen format. LV systolic performance overall improves with a peak ejection fraction of 70%. Postexercise, there continues to be abnormal septal & anteroseptal motion likely related to ventricular pacing. Stress The patient did not exhibit any symptoms during exercise. Exercise was stopped due to fatigue. RPP [id number]. Stress Results Protocol: Dany Maximum Predicted HR: 143 bpm Target HR: 122 bpm % Maximum Predicted HR: 90 % Stage DurationHeart Rate BP (mm:ss) (bpm) Peak Stress 6:30 128 168/82 RecoveryR 8:01 68 138/77 Stress Duration: 6:30 mm:ss Recovery Time: 8:01 mm:ss Maximum Stress HR: 128 bpm METS: 8 MMode/2D Measurements & Calculations IVSd: 1.4 cm LVIDd: 5.3 cm LVIDs: 3.9 cm LVPWd: 1.0 cm FS: 27.2 % LV mass(C)dI: 127.7 grams/m2 RWT: 0.38 Doppler Measurements & Calculations TR max lyn: 250.2 cm/sec TR max P.0 mmHg Report approved by: Jose Alberto Abraham MD on 03/08/2024 09:34 AM Procedure Note Chino Abraham MD - 03/08/2024 [id number]^MIHIR^ODILON^[address] [place] [address] Name: OLAYINKA VEE : 1945 Study Date: 03/08/2024 08:25 AM Age: 78 yrs Gender: Male Patient Location: [facility] Reason For Study: CAD (coronary artery disease), HLD (hyperlipidemia),HTN (hypert Ordering Physician: ODILON CLEANING Referring Physician: ODLION CLEANING Performed By: YAHIR BSA: 2.0 m2 Height: 71 in Weight: 176 lb HR: 69 BP: 156/79 mmHg Procedure Stress Echo Treadmill with two dimensional, color and spectral Doppler. Definity contrast given intravenously [[facility] #[id number]]. Interpretation Summary 1. Probable normal stress echocardiogram, but with somewhat reduced specificity due to abnormal septal & anteroseptal motion both pre and postexercise undoubtedly related to ventricular pacing. 2. Normal resting LV systolic performance with an ejection fraction of55-60%. There is overall improvement in left ventricular systolic performance witha peak ejection fraction of 70%. 3. The ECG portion of the study is nondiagnostic due to ventricularpacing throughout the entirety of the study. 4. No anginal chest pain reported with exercise. 5. Average functional capacity for age. Stress Summary: Patient exercised on the Dany protocol for a total of6:30 minutes. Peak heart rate achieved was 128 b.p.m (90% max.) with adouble- product of 20,160. The patient stopped exercise due to generalizedfatigue. No chest pain symptoms were reported. Electrocardiogram: Baseline ECG reveals normal sinus rhythm. There is ventricular pacing throughout the study (A-sensed/V-paced). OccasionalPVCs and 7 couplets were noted. Baseline echocardiogram: Technically adequate images were obtained inthe standard quad-screen format. LV systolic performance is normal with avisually estimated ejection fraction of 55-60%.There is abnormal septal &anteroseptal motion consistent with ventricular paced rhythm. Screening Doppler interrogation suggests mild aortic insufficiency. Postexercise echocardiogram: Technically adequate images were obtained immediately post exercise in the standard quad-screen format. LVsystolic performance overall improves with a peak ejection fraction of 70%. Postexercise, there continues to be abnormal septal & anteroseptalmotion likely related to ventricular pacing. Stress The patient did not exhibit any symptoms during exercise. Exercise was stopped due to fatigue. RPP [id number]. Stress Results Protocol: Dany Maximum Predicted HR: 143 bpm Target HR: 122 bpm % Maximum Predicted HR: 90 % Stage DurationHeart Rate BP (mm:ss) (bpm) Peak Stress 6:30 128 168/82 RecoveryR 8:01 68 138/77 Stress Duration: 6:30 mm:ss Recovery Time: 8:01 mm:ss Maximum Stress HR: 128 bpm METS: 8 MMode/2D Measurements & Calculations IVSd: 1.4 cm LVIDd: 5.3 cm LVIDs: 3.9 cm LVPWd: 1.0 cm FS: 27.2 % LV mass(C)dI: 127.7 grams/m2 RWT: 0.38 Doppler Measurements & Calculations TR max lyn: 250.2 cm/sec TR max P.0 mmHg Report approved by: Jose Alberto Abraham MD on 03/08/2024 09:34 AM Odilon Cleaning DO CV ECHO ORDERABLES [place] akshat Result - Final * Lipid panel reflex to direct LDL Non-fasting (08/24/2023 1:49 PM CDT) Cholesterol 134 <200 mg/dL 08/25/2023 11:59 AM CDT [facility] Triglycerides 52 <150 mg/dL 08/25/2023 11:59 AM CDT [facility] Direct Measure HDL 72 >=40 mg/dL 2023 11:59 AM CDT [facility] LDL Cholesterol Calculated 52 <=100 mg/dL 08/25/2023 11:59 AM CDT [facility] Non HDL Cholesterol 62 <130 mg/dL 08/25/2023 11:59 AM CDT [facility] Patient Fasting > 8hrs? No 08/25/2023 11:59 AM CDT [facility] Blood BLOOD SPECIMEN / Unknown Venipuncture / Unknown 08/24/2023 1:49 PM CDT 08/24/2023 1:49 PM CDT Narrative [facility] - 08/25/2023 11:59 AM CDT Cholesterol Desirable: <200 mg/dL Triglycerides Normal: Less than 150 mg/dL Borderline High: 150-199 mg/dL High: 200-499 mg/dL Very High: Greater than or equal to 500 mg/dL Direct Measure HDL Female: Greater than or equal to 50 mg/dL Male: Greater than or equal to 40 mg/dL LDL Cholesterol Desirable: <100mg/dL Above Desirable: 100-129 mg/dL Borderline High: 130-159 mg/dL High: 160-189 mg/dL Very High: >= 190 mg/dL Non HDL Cholesterol Desirable: 130 mg/dL Above Desirable: 130-159 mg/dL Borderline High: 160-189 mg/dL High: 190-219 mg/dL Very High: Greater than or equal to 220 mg/dL us Ansley Denney MD LAB - BLOOD ORDERABLES Stacey morataya Result [facility] [place] Core Lab [address] [facility], Room [address] [id number] * Comprehensive metabolic panel (08/24/2023 1:49 PM CDT) Pathologist [facility] Sodium 139 135 - 145 mmol/L 08/25/2023 11:59 AM CDT [facility] Potassium 4.4 3.4 - 5.3 mmol/L 08/25/2023 11:59 AM CDT [facility] Carbon Dioxide (CO2) 23 22 - 29 mmol/L 08/25/2023 11:59 AM CDT [facility] Anion Gap 11 7 - 15 mmol/L 08/25/2023 11:59 AM CDT [facility] Urea Nitrogen 16.8 8.0 - 23.0 mg/dL 08/25/2023 11:59 AM CDT [facility] Creatinine 0.88 0.67 - 1.17 mg/dL 08/25/2023 11:59 AM CDT [facility] GFR Estimate 89 >60 mL/min/1. 73m2 08/25/2023 11:59 AM CDT [facility] Comment:eGFR calculated usin 2020 CKD-EPI equation. Calcium 9.5 8.8 - 10.2 mg/dL 08/25/2023 11:59 AM CDT [facility] Chloride 105 98 - 107 mmol/L 08/25/2023 11:59 AM CDT [facility] Glucose 99 70 - 99 mg/dL 08/25/2023 11:59 AM CDT [facility] Alkaline Phosphatase 52 40 - 150 U/L 08/25/2023 11:59 AM CDT [facility] AST 28 0 - 45 U/L 08/25/2023 11:59 AM CDT [facility] Comment:Reference intervals for this test were updated on 08/10/2022 to more accurately reflect our healthy population. There may be differences in the flagging of prior results with similar values performed with this method. Interpretation of those prior results can be made in the context of the updated reference intervals. ALT 22 0 - 70 U/L 08/25/2023 11:59 AM CDT [facility] Comment:Reference intervals for this test were updated on 08/10/2022 to more accurately reflect our healthy population. There may be differences in the flagging of prior results with similar values performed with this method. Interpretation of those prior results can be made in the context of the updated reference intervals. Protein Total 6.8 6.4 - 8.3 g/dL 08/25/2023 11:59 AM CDT [facility] Albumin 4.5 3.5 - 5.2 g/dL 08/25/2023 11:59 AM CDT [facility] Bilirubin Total 0.5 <=1.2 mg/dL 08/25/2023 11:59 AM CDT [facility] Patient Fasting > 8hrs? No 08/25/2023 11:59 AM CDT [facility] Blood BLOOD SPECIMEN / Unknown Venipuncture / Unknown 08/24/2023 1:49 PM CDT 08/24/2023 1:49 PM CDT us Ansley Denney MD LAB - BLOOD ORDERABLES Stacey l Result [facility] [place] [facility] [address] [facility], [address] [id number] * Hepatitis C Screen Reflex to HCV RNA Quant and Genotype (07/30/2021 12:29 PM CDT) Hepatitis C Antibody Nonreactive Nonreactive 07/31/2021 8:47 AM CDT SPECIALTY CORE/PROT/EN DO Blood STRUCTURE OF LEFT UPPER LIMB / Unknown Venipuncture / Unknown 07/30/2021 12:29 PM CDT 07/30/2021 12:30 PM CDT Narrative SPECIALTY CORE/PROT/ENDO - 07/31/2021 8:47 AM CDT Assay performance characteristics have not been established for newborns, infants, and children. us Ansley Denney MD LAB - BLOOD ORDERABLES Stacey l Result SPECIALTY CORE/PROT/ENDO [facility] Specialty Core/Prot/Endo [address] [facility], [address] [place] [address], [facility] [phone] * COLONOSCOPY - HIM SCAN (04/04/2021 12:00 AM SENIOR ATTORNEY) 04/04/2021 us Provider Outside PROCEDURES Final Result from Last 3 Months or Most Recently Relevant to Health Maintenance Insurance [facility] SupportPay MEDICARE [facility] SupportPay MEDICARE Care Teams Corn Chip Maker Relationship Specialty Start Date End Date Ansley Denney MD [address] [place] [address] [place] [address] PCP - General Family Medicine 09/13/20 Ansley Denney MD [address] [place] [place] [id number] Assigned PCP 08/14/20 Lan Ledbetter MD [address] [facility] [place] [address] Assigned Heart and Vascular Provider 09/21/23
--- OUTSIDE RECORDS SUMMARY | 2024-03-19 05:17 | XMS_ITS | Encounter Summary ---
Author Organization [place] Address [address] [place] [address]. [place] [address] Care Team Providers Care Circuit Board Assembler Name Role Phone Ansley Denney MD Primary Care Provider [phone] Ansley Denney MD Unavailable Lan Ledbetter MD Unavailable [phone] Odilon Cleaning DO Unavailable Lan Ledbetter MD Unavailable [phone] Encounter Details Date Type Department Care Team (Late st Contact Info) Description 02/11/2023 [facility] [address] [place] [phone] Ansley Denney MD [address] [place] [address] [id number] Social History Tobacco Use Types Packs/Day Years Used Date Smoking Tobacco: Never Passive Smoke Exposure: Never Smokeless Tobacco: Never Alcohol Use Standard Drinks/Week Comments Yes 0 (1 standard drink = 0.6 oz pure alcohol) Alcoholic Drinks/day: 1 glass wine daily PHQ-2 Answer Date Recorded PHQ-2 Score 0 08/11/2022 Adolescent Education Answer Date Record ed Getting School Help Needed Not on file 11/21 Sex and Gender Information Value Date Recorded Sex Assigned at Not on file Legal Sex Male 5:14 PM CDT Gender Identity Not on file Sexual Orientation Straight 08/09/2023 8: 33 AM CDT Travel History Travel Start Travel End [place] 02/22/2024 03/07/2024 documented as of this encounter Plan of Treatment Upcoming Encounters Date Type Department Care Team (Late st Contact Info) Description 05/26/2024 1:00 PM CDT Ancillary Procedure [address], [address] [place] [phone] Nathan Drummond MD [address] [place] [id number] 05/26/2024 2:20 PM CDT Office Visit [address] [place] [phone] Nathan Drummond MD [address] [place] [address] Odilon Cleaning, DO [address] [place] [address] documented as of this encounter Visit Diagnoses Not on filedocumented in this encounter Care Teams Circuit Board Assembler Relationship Specialty Start Date End Date Ansley Denney MD [address] [facility] [address] [place] [address] [place] [id number] PCP - General Family Medicine 09/13/20 Ansley Denney MD [address] [facility] [address] [place] [facility] [place] [address] Assigned PCP 08/14/20 Lan Ledbetter MD [address] [facility] [address] [place] [address] Assigned Heart and Vascular Provider 08/22/22 06/21/23 Odilon Cleaning DO [address] [place] [address] Assigned Heart and Vascular Provider 06/22/23 09/20/23 Lan Ledbetter MD [address] [address] Assigned Heart and Vascular Provider 09/21/23 documented as of this encounter
--- OUTSIDE RECORDS SUMMARY | 2024-03-19 05:17 | XMS_ITS | Referral Summary ---
Author Organization [place] Address [address] [place] [address]. [place] [address] Care Team Providers Care Studio Musician Name Role Phone Ansley Denney MD Primary Care Provider [phone] Ansley Denney MD Unavailable [phone] Lan Ledbetter MD Unavailable Encounters Date Type Department Care Team Description 03/15/2024 [facility] Medical Advice [facility] [address] [facility] [address] [place] [phone] Odilon Cleaning DO 03/14/2024 Ancillary Procedure [facility] [address] [facility] [address] [place] [phone] Nathan Drummond MD Pacemaker; Sick sinus syndrome (H); Complete heart block (H) 03/08/2024 Shira Medical Advice [facility] Heart [facility] [address] [facility] [address] [place] [phone] Odilon Cleaning DO 03/08/2024 Travel 03/08/2024 7:46 AM ORDER MANAGER - 03/08/2024 11:59 PM ORDER MANAGER Hospital Encounter [facility] [address] [place] [phone] Odilon Cleaning DO Discharge Disposition: Home or Self Care 03/04/2024 Shira Medical Advice [facility] [address] [facility] [address] [place] [phone] Odilon Cleaning DO CAD (coronary artery disease) (Primary Dx); HLD (hyperlipidemia); HTN (hypertension); Coronary artery calcification seen on CT scan 03/04/2024 MyC Medical Advice [facility] [address] [place] [phone] Lan Ledbetter MD 02/28/2024 Refill [facility] [address] [facility] [address] [place] [phone] Odilon Cleaning DO Medication Refill from Last 3 Months Allergies Active Allergy Reactions Criticality Noted Date [...] Active multivit-min/ferr ous fumarate (MULTI VITAMIN ORAL) [MULTIVIT-DC N/FERROUS FUMARATE (MULTI VITAMIN ORAL)] Take by mouth. 02/19/20 20 Active ascorbic acid, vitamin C, (VITAMIN C) 1000 MG tablet [ASCORBIC ACID, VITAMIN C, (VITAMIN C) 1000 MG TABLET] Take 1,000 mg by mouth daily. 02/19/20 20 Active [place]-3 Fatty Acids (FISH OIL PO) Take 2,400 [...] Shoulder 07/30/2021 Overview (08/13/2020): Created by Conversion Immunizations Name Administration Dates Next Due Flu, Unspecified 12/28/2015 Influenza (High Dose) Trival ent,PF (Fluzone) 11/30/2018,01/05/2015 Influenza (IIV3) PF 12/10/2011,12/03/2010 Influenza (prior to 2023) 12/24/2016,12/28/2015 Influenza Vaccine 65+ (Fluzone HD) 12/06/2021,,12/14/2019 Influenza Vaccine >6 months,quad, PF 01/10/2018 Pneumo Conj 13-V (2010&after) 12/12/2014 Pneumococcal 23 valent 03/25/2016 TDAP (Adacel,Boostrix) 07/18/2014 Zoster recombinant adjuvanted (SHINGRIX) 020,07/06/2018 Zoster vaccine, live 07/18/2014 Social History Tobacco Use Types Packs/Day Years [...] re latives? Once a week 08/19/2023 Attends Gnosticism Services Not on file 08/18 Active Member of Clubs or Organizations Not on f ile 08/19/2023 Attends Club or Organization Meetings Not on benjie e 08/19/2023 Marital Status Not on file 08/19/2023 PHQ-2 Answer Date Recorded PHQ-2 Score 0 08/24/2023 [facility] [place] of Occupat ional Health - Occupational Stress [...] in an abandoned building, in an overnight residential, or couch-surfing.) Yes 08/19/2023 Are you worried [...] Description 05/26/2024 1:00 PM CDT Ancillary Procedure [address], [address] [place] [phone] Nathan Drummond MD [address] [place] [address] 05/26/2024 2:20 PM CDT Office Visit [address] [place] [phone] Nathan Drummond MD [address] [place], [place] [address] Odilon Cleaning, DO [address] [place] [address] Medical Devices Implanted Type Area Water Plumber Device Identifier Shelf Expiration Date Model / Serial / Lot Imp Lead Pacing Bipolar Capsurefix Novus 52cm 5076-52 - [id number] Implanted:Qty : 1 on 10/16/2020 by Zbigniew Arreaga MD at [facility] Leads N/A: Right Atrium [employer] 08/22/2022 5076-52 / [id number] / [id number] Imp Lead Pacing Bipolar Capsurefix Novus 58cm 5076-58 - [id number] Implanted:Qty : 1 on 10/16/2020 by Zbigniew Arreaga MD at [facility] Leads N/A: Right Ventricle [employer] 08/06/2022 5076-58 / [id number] / [id number] Medtronic I* 5076 Capsurefix Novus Mri Surescan [id number] Implanted: (Quantity not on file) Leads [employer] 5076 CAPSUREFIX NOVUS MRI SURESCAN / [id number] / Medtronic I* 5076 Capsurefix Novus Mri Surescan [id number] Implanted: (Quantity not on file) Leads [employer] 5076 CAPSUREFIX NOVUS MRI SURESCAN / [id number] / Pacemaker Nery Mri Xt - [id number] Implanted:Qty : 1 on 10/16/2020 by Zbigniew Arreaga MD at [facility] Pacemaker [employer] 02/11/2022 [id number] / [id number] / [id number] Procedures Procedure Name Priority Date/Time Associated Diagnosis Comments INTERROGATION DEVICE EVAL REMOTE PACER UP TO 90 DAYS Routine 03/14/2024 10:23 AM ORDER MANAGER Pacemaker Sick sinus syndrome (H) Complete heart block (H) ECHO EXERCISE STRESS TEST WITH CONTRAST Routine 03/08/2024 9:03 AM ORDER MANAGER CAD (coronary artery disease) HLD (hyperlipidemia) HTN [...] COLONOSCOPY - HIM SCAN 04/04/2021 12:00 AM ORDER MANAGER from Last 3 Months or Most Recently Relevant to Health Maintenance Results * INTERROGATION DEVICE EVAL REMOTE PACER UP TO 90 DAYS (03/14/2024 10:23 AM ORDER MANAGER) Date Time Interrogation Session [id number] [employer] Implantable Pulse Generator Water Plumber Medtronic [employer] Implantable Pulse Generator Model [id number] Nery XT DR FORD [employer] Implantable Pulse Generator Serial Number [id number] [employer] Type Interrogation Session Remote Scheduled [employer] Clinic Name [facility] [employer] Implantable Pulse Generator Type Pacemaker [employer] Implantable Pulse Generator Implant Date 20201016 [employer] Implantable Lead Water Plumber Medtronic [employer] Implantable Lead Model 5076 CapSureFix Novus MRI SureScan [employer] Implantable Lead Serial Number [id number] [employer] Implantable Lead Implant Date 20201016 [employer] Implantable Lead Polarity Type Bipolar Lead [employer] Implantable Lead Location Detail 1 UNKNOWN [employer] Implantable Lead Location Right Atrium [employer] Implantable Lead Connection Status Connected [employer] Implantable Lead Water Plumber Medtronic [employer] Implantable Lead Model 5076 CapSureFix Novus MRI SureScan [employer] Implantable Lead Serial Number [id number] [employer] Implantable Lead Implant Date 20201016 [employer] [...] ms [employer] Battery Date Time of Measurements [id number] [employer] Battery Status OK [employer] Battery PRODUCT ADVISOR Trigger 2.625 [employer] Battery Remaining Longevity 141 mo [employer] Battery Voltage 3.02 V [employer] Lupillo Statistic Date Time Start 06842399483215 [employer] Lupillo Statistic Date Time End [id number] [employer] Lupillo Statistic RA Percent Paced 12.24 % [employer] [place]illo Statistic RV Percent Paced 95.07 % [employer] [place] Statistic AP [employer]SP[employer] Percent 11.34 % [employer] [place] Statistic TRANSP[employer] Percent 83.73 % [employer] [place] Statistic AP VS Percent 0.54 % [employer] [place] Statistic VS Percent 4.39 % [employer] Atrial Tachy Statistic Date Time Start 09426761660088 [employer] Atrial Tachy Statistic Date Time End [id number] [employer] Atrial Tachy Statistic AT/AF [place] Percent 0 % [employer] Therapy Statistic Recent Date Time Start 71041364392050 [employer] Therapy Statistic Recent Date Time End 60399121914804 [employer] Therapy Statistic Total Date Time Start 79911050713672 [employer] Therapy Statistic Total Date Time End 53852631646009 [employer] Episode Statistic Recent Count 0 MED[employer]IC [...] [employer] Episode Statistic Recent Date Time Start 55347006989716 [employer] Episode Statistic Recent Date Time End 64494210912984 [employer] Episode Statistic Recent Date Time Start 12389119716647 [employer] Episode Statistic Recent Date Time End 62492296973736 [employer] Episode Statistic Recent Date Time Start 97231290444567 [employer] Episode Statistic Recent Date Time End 70767562798618 [employer] Episode Statistic Recent Date Time Start 35521751703766 [employer] Episode Statistic Recent Date Time End 19654527646508 [employer] Episode Statistic Recent Date Time Start 54425215746617 [employer] Episode Statistic Recent Date Time End 98243936355946 [employer] Episode Statistic Total Count 0 MEDTRONIC [...] [employer] Episode Statistic Total Date Time Start 02027794993755 [employer] Episode Statistic Total Date Time End 12012833756538 [employer] Episode Statistic Total Date Time Start 33618349315640 [employer] Episode Statistic Total Date Time End 27802771479494 [employer] Episode Statistic Total Date Time Start 67877419673513 [employer] Episode Statistic Total Date Time End 82692418367746 [employer] Episode Statistic Total Date Time Start [id number] [employer] Episode Statistic Total Date Time End 34205312928909 [employer] Episode Statistic Total Date Time Start 96841664606204 [employer] Episode Statistic Total Date Time End 87397203917408 [employer] Episode Identifier 321 [employer] Episode Type Category VT [employer] Episode Date Time 41202269765630 [employer] Episode Duration 1 s [employer] Anatomical Region Laterality Modality Other 03/14/2024 3:46 AM ORDER MANAGER Narrative 03/15/2024 4:23 PM ORDER MANAGER Encounter Type: routine remote pacemaker transmission. Device: Medtronic Nery Pacing % /Programmed: AP 12%, TRANSPORTATION [employer]IP 95% at AAI<=>DDD 50/130 ppm. Lead(s): stable. Battery longevity: 11yrs, 9mo estimated. Presenting: -TRANSPORTATION [employer]IST[employer]NS[employer]IP 45 bpm. Atrial high rates: since 11/26/23; none detected. Anticoagulant: None. Ventricular High rates: since 11/26/23; one ventricular high rate episode, appears to be NSVT 5bts. Comments: Normal device function. Plan: Patient scheduled for annual device check on 05/26/24 at 1:00PM at our [facility] location. E. Pivec, Device Specialist Device follow up for the [...] STRESS TEST WITH CONTRAST (03/08/2024 9:03 AM ORDER MANAGER) Pharmacologic Protocol Stress Echo CARDIOLOGY RESULTS Test [...] Ultrasound, Ultr asound, Other 03/08/2024 8:25 AM ORDER MANAGER Narrative 03/08/2024 9:34 AM ORDER MANAGER [id number]^HERMILA^ODILON^[place] [address] Name: OLAYINKA ROMERO : 1945 Study Date: 03/08/2024 08:25 AM Age: 78 yrs Gender: Male Patient Location: [facility] Reason For Study: CAD (coronary artery disease), HLD (hyperlipidemia), HTN (hypert Ordering Physician: ODILON CLEANING Referring Physician: ODILON CLEANING Performed By: YAHIR BSA: 2.0 m2 Height: 71 in Weight: 176 lb HR: 69 BP: 156/79 mmHg Procedure Stress Echo Treadmill with two dimensional, color and spectral Doppler. Definity contrast given intravenously [[facility] #[id number]]. Interpretation Summary 1. Probable normal stress echocardiogram, [...] Exercise was stopped due to fatigue. RPP 42765. Stress Results Protocol: Dany Maximum Predicted HR: [...] Procedure Note Chino Abraham MD - 03/08/2024 [id number]^HERMILA^ODILON^[address] [address] Name: KEVIN ROMEROMaría Blancas : 1945 Study Date: 03/08/2024 08:25 AM Age: 78 yrs Gender: Male Patient Location: [facility] Reason For Study: CAD (coronary artery disease), HLD (hyperlipidemia),HTN (hypert Ordering Physician: ODILON CLEANING Referring Physician: ODILON CLEANING Performed By: YAHIR BSA: 2.0 m2 Height: 71 in Weight: 176 lb HR: 69 BP: 156/79 mmHg Procedure Stress Echo Treadmill with two dimensional, color and spectral Doppler. Definity contrast given intravenously [[facility] #[id number]]. Interpretation Summary 1. Probable normal stress echocardiogram, [...] Exercise was stopped due to fatigue. RPP 88735. Stress Results Protocol: Dany Maximum Predicted HR: [...] Abraham MD on 03/08/2024 09:34 AM Odilon Wiseman Hermila DO CV ECHO ORDERABLES [place] akshat Result [...] l Result [facility] [address] [facility], [address] [place] [address], [facility] * Comprehensive metabolic panel (08/24/2023 1:49 PM CDT) Sodium 139 135 - 145 mmol/L 08/25/2023 [...] 11:59 AM CDT [facility] Comment:eGFR calculated us2020 CKD-EPI equation. Calcium 9.5 8.8 - 10.2 [...] 1:49 PM CDT 08/24/2023 1:49 PM CDT Ansley Denney MD LAB - BLOOD ORDERABLES Stacey l Result [facility] [address] [facility], [address] [id number] * Hepatitis C Screen Reflex to HCV RNA Quant and Genotype (07/30/2021 12:29 PM CDT) Hepatitis C Antibody Nonreactive Nonreactive 07/31/2021 8:47 AM CDT [facility] DO Blood STRUCTURE OF LEFT UPPER LIMB / Unknown Venipuncture / Unknown 07/30/2021 12:29 PM CDT 07/30/2021 12:30 PM CDT Narrative [facility] - 07/31/2021 8:47 AM CDT Assay performance characteristics have not been established for newborns, infants, and children. Ansley Denney MD LAB - BLOOD ORDERABLES Stacey l Result [facility]Prot[facility]Endo [address] [facility] [address], [address] [place], [place] [address] [phone] * COLONOSCOPY - HIM SCAN (04/04/2021 12:00 AM ORDER MANAGER) 04/04/2021 us Provider Outside PROCEDURES Final Result from Last 3 Months or Most Recently Relevant to Health Maintenance Insurance [facility] [employer] MED[employer]ARE [facility] [employer] Care Teams Studio Musician Relationship Specialty Start Date End Date Ansley Denney MD [address] [place] [address] [place] [id number] PCP - General Family Medicine 09/13/20 Ansley Denney MD [address] [place] [address] [place] [id number] Assigned PCP 08/14/20 Lan Ledbetter MD [address] [place] [place] [address] Assigned Heart and Vascular Provider 09/21/23
--- OUTSIDE RECORDS SUMMARY | 2024-03-19 05:17 | XMS_ITS | Encounter Summary ---
Author Organization [place] Address [address] [place] [address]. [place] [address] Care Team Providers Care Sausage Cutter Name Role Phone Ansley Denney MD Primary Care Provider [phone] Ansley Denney MD Unavailable [phone] Odilon Cleaning DO Unavailable + [phone] Lan Ledbetter MD Unavailable [phone] Encounter Details Date Type Department Care Team (Late st Contact Info) Description 08/25/2023 MyC Medical Advice [address] [place] [phone] Ansley Denney MD [address] [place] [phone] Social History Tobacco Use Types Packs/Day Years [...] re latives? Once a week 08/19/2023 Attends Jain Services Not on file 08/18 Active Member of Clubs or Organizations Not on f ile 08/19/2023 Attends Club or Organization Meetings Not on benjie e 08/19/2023 Marital Status Not on file 08/19/2023 PHQ-2 Answer Date Recorded PHQ-2 Score 0 08/24/2023 [facility] [place] of Occupat ional Health - Occupational Stress [...] Date Recorded Do you have housing? (Isidra g is defined as stable permanent housing and does not include staying ouside in a car, in a tent, in an abandoned building, in an overnight senior care, or couch-surfing.) Yes 08/19/2023 Are you worried [...] CDT Travel History Travel Start Travel End [place] 02/22/2024 03/07/2024 documented as of this encounter Plan of Treatment Upcoming Encounters Date Type Department Care Team (Late st Contact Info) Description 05/26/2024 1:00 PM CDT Ancillary Procedure [address], [address] [place] [phone] Nathan Drummond MD [address] [place] [phone] 05/26/2024 2:20 PM CDT Office Visit [address] [place] [phone] Nathan Drummond MD [address] [place] [address] Odilon Cleaning, DO [address] [place] [address] documented as of this encounter Visit Diagnoses Not on filedocumented in this encounter Care Teams Sausage Cutter Relationship Specialty Start Date End Date Ansley Denney MD [address] [place] [address] PCP - General Family Medicine 09/13/20 Ansley Denney MD [address] [place] [address] Assigned PCP 08/14/20 Odilon Cleaning DO [address] [place] [address] Assigned Heart and Vascular Provider 06/22/23 09/20/23 Lan Ledbetter MD [address] [place] [address] [place] [address] Assigned Heart and Vascular Provider 09/21/23 documented as of this encounter
--- OUTSIDE RECORDS SUMMARY | 2024-03-19 05:17 | XMS_ITS | Encounter Summary ---
Author Organization [place] Address [address] [place] [address]. [place] [address] Care Team Providers Care Him Tech Name Role Phone Ansley Denney MD Primary Care Provider [phone] Ansley Denney MD Unavailable [phone] Donna Hamlin MD Unavailable [phone] Lan Ledbetter MD Unavailable [phone] Odilon Cleaning DO Unavailable [phone] Lan Ledbetter MD Unavailable [phone] Encounter Details Date Type Department Care Team (Late st Contact Info) Description 08/12/2022 [facility] Medical Advice [address] [place] [phone] Ansley Denney MD [address] [place] [address] Social History Tobacco Use Types Packs/Day Years Used Date Smoking Tobacco: Never Smokeless Tobacco: Never Alcohol Use Standard Drinks/Week Comments Yes 0 (1 standard drink = 0.6 oz pure alcohol) Alcoholic Drinks/day: 1 glass wine daily PHQ-2 Answer Date Recorded PHQ-2 Score 0 08/11/2022 Sex and Gender Information Value Date Recorded Sex Assigned at Not on file Legal Sex Male 5:14 PM CDT Gender Identity Not on file Sexual Orientation Straight 08/09/2023 8: 33 AM CDT Travel History Travel Start Travel End [place] 02/22/2024 03/07/2024 COVID-19 Exposure Response Date Recorded In the last 10 days, have dima whittaker been in contact with someone who was confirmed or suspected to have Coronavirus/COVID-19? No / Unsure 08/11/2022 9:04 AM CDT documented as of this encounter Plan of Treatment Upcoming Encounters Date Type Department Care Team (Late st Contact Info) Description 05/26/2024 1:00 PM CDT Ancillary Procedure [address], [facility] [address] [place] [phone] Nathan Drummond MD [address] [place] [address] 05/26/2024 2:20 PM CDT Office Visit [address] [place] [phone] Nathan Drummond MD [address] [place] [phone] Odilon Cleaning, DO [address] [place] [address] documented as of this encounter Visit Diagnoses Not on filedocumented in this encounter Care Teams Him Tech Relationship Specialty Start Date End Date Ansley Denney MD [address] [facility] [address] [place] [facility] [place] [address] PCP - General Family Medicine 09/13/20 Ansley Denney MD [address] [facility] [address] [place] [address] [place] [address] Assigned PCP 08/14/20 Donna Hamlin MD [address] [facility] [address] [place] [address] Assigned Heart and Vascular Provider 08/01/22 08/21/22 Lan Ledbetter MD [address] [place] [place] [address] Assigned Heart and Vascular Provider 08/22/22 06/21/23 Odilon Cleaning DO [address] [facility] [place] [address] Assigned Heart and Vascular Provider 06/22/23 09/20/23 Lan Ledbetter MD [address] [place] [place] [address] Assigned Heart and Vascular Provider 09/21/23 documented as of this encounter
--- OUTSIDE RECORDS SUMMARY | 2024-03-19 05:17 | XMS_ITS | Encounter Summary ---
Author Organization [place] Address [address] [place] [address]. [place] [address] Care Team Providers Care Code Machine Operator Name Role Phone Ansley Denney MD Primary Care Provider [phone] Ansley Denney MD Unavailable [phone] Lan Ledbetter MD Unavailable Encounter Details Date Type Department Care Team (Late st Contact Info) Description 03/08/2024 MyC Medical Advice [facility] [place] [address] [facility] [address] [place] [address] Odilon Cleaning, [address] [place], [place] [phone] Social History Tobacco Use Types Packs/Day Years [...] re latives? Once a week 08/19/2023 Attends Restoration Services Not on file 08/18 Active Member of Clubs or Organizations Not on f ile 08/19/2023 Attends Club or Organization Meetings Not on benjie e 08/19/2023 Marital Status Not on file 08/19/2023 PHQ-2 Answer Date Recorded PHQ-2 Score 0 08/24/2023 [facility] - Occupational Stress Questionnaire Answer Date Recorded [...] in an abandoned building, in an overnight usp, or couch-surfing.) Yes 08/19/2023 Are you worried [...] CDT Travel History Travel Start Travel End [place] 02/22/2024 03/07/2024 documented as of this encounter Plan of Treatment Upcoming Encounters Date Type Department Care Team (Late st Contact Info) Description 05/26/2024 1:00 PM CDT Ancillary Procedure [address], [address] [place] [phone] Nathan Drummond MD [address] [place] [address] 05/26/2024 2:20 PM CDT Office Visit [address] [place] [address] Nathan Drummond MD [address] [place] [address] Odilon Cleaning, DO [address] [place] [address] documented as of this encounter Visit Diagnoses Not on filedocumented in this encounter Care Teams Code Machine Operator Relationship Specialty Start Date End Date Ansley Denney MD [address] [facility] [address] PCP - General Family Medicine 09/13/20 Ansley Denney MD [address] [facility] [place] [address] Assigned PCP 08/14/20 Lan Ledbetter MD [address] [place] [address] [place] [address] Assigned Heart and Vascular Provider 09/21/23 documented as of this encounter
--- OUTSIDE RECORDS SUMMARY | 2024-03-19 05:17 | XMS_ITS | Encounter Summary ---
Author Organization [facility] Address [address] [place] [address]. [place] [address] Care Team Providers Care Advanced Seal Delivery System Name Role Phone Ansley Denney MD Primary Care Provider [phone] Ansley Denney MD Unavailable [phone] Lan Ledbetter MD Unavailable [phone] Donna Hamlin MD Unavailable [phone] Lan Ledbetter MD Unavailable [phone] Donna Hamlin MD Unavailable [phone] Lan eLdbetter MD Unavailable [phone] Odilon Cleaning DO Unavailable [phone] Lna Ledbetter MD Unavailable [phone] Reason for Visit * Reason Comments Medication Refill Encounter Details Date Type Department Care Team (Late st Contact Info) Description 04/07/2022 [facility] [address] [facility] [address] [place] [phone] Donna Hamlin MD [address] [employer] [address] [place], [place] [phone] Medication Refill Social History Tobacco Use Types Packs/Day Years Used Date Smoking Tobacco: Never Smokeless Tobacco: Never Alcohol Use Standard Drinks/Week Comments Yes 0 (1 standard drink = 0.6 oz pure alcohol) Alcoholic Drinks/day: 1 glass wine daily PHQ-2 Answer Date Recorded PHQ-2 Score 0 07/30/2021 Sex and Gender Information Value Date Recorded Sex Assigned at Not on file Legal Sex Male 5:14 PM CDT Gender Identity Not on file Sexual Orientation Straight 08/09/2023 8: 33 AM CDT Travel History Travel Start Travel End [place] 02/22/2024 03/07/2024 COVID-19 Exposure Response Date Recorded In the last 10 days, have yo u been in contact with someone who was confirmed or suspected to have Coronavirus/COVID-19? Unable to assess 03/27/2022 9:46 AM CORRECTIVE AND MANUAL ARTS THERAPIST documented as of this encounter Plan of Treatment Upcoming Encounters Date Type Department Care Team (Late st Contact Info) Description 05/26/2024 1:00 PM CDT Ancillary Procedure [address] 110 [place] [address] Nathan Drummond MD [address] [place] [address] 05/26/2024 2:20 PM CDT Office Visit [address] [place] [address] Nathan Drummond MD [address] [place] [address] Odilon Cleaning, DO 1600 [place] [address] documented as of this encounter Visit Diagnoses Diagnosis Benign essential hypertension Essential hypertension, benign 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, abdominal documented in this encounter Care Teams Advanced Seal Delivery System Relationship Specialty Start Date End Date Ansley Denney MD [address] [facility] [address] [place] [place] [address] PCP - General Family Medicine 09/13/20 Ansley Denney MD [address] [facility] [address] [place] [address] Assigned PCP 08/14/20 Lan Ledbetter MD [address] [place] [address] Assigned Heart and Vascular Provider 08/02/21 05/08/22 Donna Hamlin MD [address] [employer] [address] [place] [address] Assigned Heart and Vascular Provider 05/09/22 07/24/22 Lan Ledbetter MD [address] [place] [address] Assigned Heart and Vascular Provider 07/25/22 07/31/22 Donna Hamlin MD [address] [employer] [address] [place] [address] Assigned Heart and Vascular Provider 08/01/22 08/21/22 Lan Ledbetter MD [address] [place] [address] Assigned Heart and Vascular Provider 08/22/22 06/21/23 Odilon Cleaning DO 1600 [place] [address] Assigned Heart and Vascular Provider 06/22/23 09/20/23 Lan Ledbetter MD [address] [place], [place] [address] Assigned Heart and Vascular Provider 09/21/23 documented as of this encounter
--- OUTSIDE RECORDS SUMMARY | 2024-03-19 05:17 | XMS_ITS | Encounter Summary ---
Author Organization [facility] Address [address] [place] [address]. [place] [address] Care Team Providers Care Power Lineman Technician Name Role Phone Ansley Denney MD Primary Care Provider [phone] Ansley Denney MD Unavailable [phone] Odilon Cleaning DO Unavailable [phone] Lan Ledbetter MD Unavailable [phone] Encounter Details Date Type Department Care Team (Late st Contact Info) Description 08/23/2023 My[facility] Medical Advice [address] [place] [phone] Ansley Denney MD [address] [place] [address] [id number] Social History Tobacco Use Types Packs/Day Years [...] re latives? Once a week 08/19/2023 Attends [employer] Services Not on file 08/18 Active Member of Clubs or Organizations Not on f ile 08/19/2023 Attends Club or Organization Meetings Not on benjie e 08/19/2023 Marital Status Not on file 08/19/2023 PHQ-2 Answer Date Recorded PHQ-2 Score 0 08/24/2023 [facility] [place] of Occupat ional Health - Occupational Stress [...] in an abandoned building, in an overnight nursing home, or couch-surfing.) Yes 08/19/2023 Are you worried [...] CDT Travel History Travel Start Travel End [place] 02/22/2024 03/07/2024 documented as of this encounter Plan of Treatment Upcoming Encounters Date Type Department Care Team (Late st Contact Info) Description 05/26/2024 1:00 PM CDT Ancillary Procedure [address], [facility] 110 [place] [phone] Nathan Drummond MD [address] [place] [address] 05/26/2024 2:20 PM CDT Office Visit [address] [place] [phone] Nathan Drummond MD [address] [place] [address] Odilon Cleaning, DO 1600 [place] [address] documented as of this encounter Visit Diagnoses Not on filedocumented in this encounter Care Teams Power Lineman Technician Relationship Specialty Start Date End Date Ansley Denney MD [address] [facility] [place] [address] PCP - General Family Medicine 09/13/20 Ansley Denney MD [address] [place] [address] Assigned PCP 08/14/20 Odilon Cleaning DO [address] [place] [address] Assigned Heart and Vascular Provider 06/22/23 09/20/23 Lan Ledbetter MD [address] [place] [address] [place] [address] Assigned Heart and Vascular Provider 09/21/23 documented as of this encounter
--- OUTSIDE RECORDS SUMMARY | 2024-03-19 05:17 | XMS_ITS | Encounter Summary ---
Author Organization [facility] Address [address] [place] [address]. [place] [address] Care Team Providers Care Test Borer Name Role Phone Ansley Denney MD Primary Care Provider [phone] Ansley Denney MD Unavailable [phone] Lan Ledbetter MD Unavailable [phone] Reason for Visit * CV Testing (Routine) - Closed Specialty Diagnoses / Procedures Referred By Contac t Referred To Contact Cardiology Diagnoses CAD (coronary artery disease) HLD (hyperlipidemia) HTN (hypertension) Coronary artery calcification seen on CT scan Procedures Echocardiogram Exercise Stress ZZHC DOPPLER ECHO PULSED, F/U OR LIMITED ZZHC DOPPLER ECHO COLOR FLOW VELOCITY MAP ZZHC ECHO HEART XTHORACIC, STRESS/REST ZZHC ECHO TRANSTHORACIC, STRESS/REST W CONTRAST ZZHC ECHO TRANSTHORACIC, STRESS/REST W/O CONTRAST ZZHC IV PUSH SINGLE, INITIAL SUBSTANCE ZZC INJECTION, PERFLUTREN LIPID MICROSPHERES, PER ML ZZHC STATISTIC IV PUSH SINGLE INITIAL SUBSTANCE CO DOPPLER ECHO PULSED, F/U OR LIMITED CO DOPPLER ECHO COLOR FLOW VELOCITY MAP CO ECHO HEART XTHORACIC, STRESS/REST CO INJECTION, PERFLUTREN LIPID MICROSPHERES, PER ML CO IV PUSH SINGLE, INITIAL SUBSTANCE CO ECHO HEART XTHORACIC, STRESS/REST CO ECHO HEART XTHORACIC, STRESS/REST HC DOPPLER ECHO PULSED, F/U OR LIMITED HC DOPPLER ECHO COLOR FLOW VELOCITY MAP HC IV PUSH SINGLE, INITIAL SUBSTANCE HC STATISTIC IV PUSH SINGLE INITIAL SUBSTANCE HC ECHO TRANSTHORACIC, STRESS/REST W CONTRAST HC ECHO TRANSTHORACIC, STRESS/REST W/O CONTRAST Odilon Cleaning DO 1600 [place] [address] Phone: tel: fax: [facility] [address] [place] [address] Phone: tel: fax: Referral ID Status Reason Start Date Expiration Date Visits Re quested Visits Authorized [id number] Closed 03/06/2024 03/06/2025 1 1 Encounter Details Date Type Department Care Team (Latest Contact Info) Description 03/08/2024 7:46 AM SENIOR MAINTENANCE TECHNICIAN - 03/08/2024 11:59 PM SENIOR MAINTENANCE TECHNICIAN Hospital Encounter M [address] [address] Odilon Cleaning DO 1600 [place] [address] Discharge Disposition: Home or Self Care Social History Tobacco Use Types Packs/Day Years [...] re latives? Once a week 08/19/2023 Attends Gnosticist Services Not on file 08/18 Active Member of Clubs or Organizations Not on f ile 08/19/2023 Attends Club or Organization Meetings Not on benjie e 08/19/2023 Marital Status Not on file 08/19/2023 PHQ-2 Answer Date Recorded PHQ-2 Score 0 08/24/2023 [facility] [place] of Occupat ional Health - Occupational Stress [...] in an abandoned building, in an overnight alf, or couch-surfing.) Yes 08/19/2023 Are you worried [...] CDT Travel History Travel Start Travel End [place] 02/22/2024 03/07/2024 documented as of this encounter Medications at Time of Discharge acetaminophen (TYLENOL) 325 MG tablet [ACETAMINOPHEN (TYLENOL) 325 MG TABLET] Take 650 mg by mouth every 6 (six) hours as needed for pain. 05/26/2018 ascorbic acid, vitamin C, (VITAMIN C) 1000 MG tablet [ASCORBIC ACID, VITAMIN C, (VITAMIN C) 1000 MG TABLET] Take 1,000 mg by mouth daily. 02/19/2020 aspirin-acetaminophe n-caffeine (EXCEDRIN MIGRAINE) 250-250-65 mg per tablet [ASPIRIN-ACETA MINOPHEN-CAFFE INE (EXCEDRIN MIGRAINE) 250-250-65 MG PER TABLET] Take 1 tablet by mouth every 6 (six) hours as needed for pain. 05/26/2018 atorvastatin (LIPITOR) 20 MG tabletIndications:No nrheumatic mitral valve regurgitation Take 1 tablet (20 mg) by mouth daily 90 tablet 3 06/07/2023 ezetimibe (ZETIA) 10 MG tabletIndications:Mi xed hyperlipidemia Take 1 tablet (10 mg) by mouth daily 90 tablet 3 06/07/2023 famotidine (PEPCID) 20 MG tabletIndications:Ga stroesophageal reflux disease without esophagitis TAKE 1 TABLET BY MOUTH 2 TIMES A DAY NEEDED FOR HEARTBURN. 180 tablet 3 08/24/2023 glucosamine-chondroi tin 500-400 mg tablet Take 1 tablet by mouth daily 02/19/2020 lisinopril (ZESTRIL) 5 MG tabletIndications:Be nign essential hypertension,Abdomin al aortic aneurysm dissection (H) TAKE 1 TABLET BY MOUTH EVERY DAY 90 tablet 02/29/2024 loratadine (CLARITIN) 10 MG tablet Take 10 mg by mouth daily magnesium oxide 250 mg magnesium Tab [MAGNESIUM OXIDE 250 MG MAGNESIUM TAB] Take by mouth. 02/19/2020 multivit-min/ferrous fumarate (MULTI VITAMIN ORAL) [MULTIVIT-MIN/ FERROUS FUMARATE (MULTI VITAMIN ORAL)] Take by mouth. 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 18 tablet 2 08/24/2023 documented as of this encounter Plan of Treatment Upcoming Encounters Date Type Department Care Team (Late st Contact Info) Description 05/26/2024 1:00 PM CDT Ancillary Procedure [place] [id number] [facility], [place] [address] [place] [phone] Nathan Drummond MD [address] [place] [address] 05/26/2024 2:20 PM CDT Office Visit [address] [place] [phone] Nathan Drummond MD [address] [place] [address] Odilon Cleaning, DO [address] [place] [address] documented as of this encounter Procedures Procedure Name Priority Date/Time Associated Diagnosis Comments ECHO EXERCISE STRESS TEST WITH CONTRAST Routine 03/08/2024 9:03 AM SENIOR MAINTENANCE TECHNICIAN CAD (coronary artery disease) HLD (hyperlipidemia) HTN (hypertension) Coronary artery calcification seen on CT scan documented in this encounter Visit Diagnoses Not on filedocumented in this encounter Administered Medications Inactive Administered Medications - up to 3 most recent administrations Medication Order MAR Action Action Date Dose Rate Site perflutren lipid microsphere (DEFINITY) injection SUSP 4 mL 4 mL, Intravenous, ONCE, On Wed03/08/24 at 0900, For 1 dose $Given 03/08/2024 9:10 AM SENIOR MAINTENANCE TECHNICIAN 4 mLs documented in this encounter Care Teams Test Borer Relationship Specialty Start Date End Date Ansley Denney MD [address] [facility] [address] [place] [address] PCP - General Family Medicine 7/16/21 Ansley Denney MD [address] [facility] [address] [place] [place] [address] Assigned PCP 08/14/20 Lan Ledbetter MD [address] [place] [address] Assigned Heart and Vascular Provider 09/21/23 documented as of this encounter
--- OUTSIDE RECORDS SUMMARY | 2024-03-19 05:17 | XMS_ITS | Encounter Summary ---
Author Organization [facility] Address [address] [place] [address]. [place] [address] Care Team Providers Care Phlebotomy Manager Name Role Phone Ansley Denney MD Primary Care Provider [phone] Ansley Denney MD Unavailable [phone] Lan Ledbetter MD Unavailable [phone] Encounter Details Date Type Department Care Team (Latest Contact Info) Description 03/08/2024 Travel Social History Tobacco Use Types Packs/Day Years [...] re latives? Once a week 08/19/2023 Attends [employer] Not on file 08/18 Active Member of Clubs or Organizations Not on f ile 08/19/2023 Attends Club or Organization Meetings Not on benjie e 08/19/2023 Marital Status Not on file 08/19/2023 PHQ-2 Answer Date Recorded PHQ-2 Score 0 08/24/2023 [facility] [place] of Occupat ional Health - Occupational Stress [...] in an abandoned building, in an overnight fpc, or couch-surfing.) Yes 08/19/2023 Are you worried [...] CDT Travel History Travel Start Travel End [place] 02/22/2024 03/07/2024 documented as of this encounter Plan of Treatment Upcoming Encounters Date Type Department Care Team (Late st Contact Info) Description 05/26/2024 1:00 PM CDT Ancillary Procedure [address], [place] [address] [place] [phone] Nathan Drummond MD [address] [place] [address] 05/26/2024 2:20 PM CDT Office Visit [address] [place] [phone] Nathan Drummond MD [address] [place] [address] Odilon Cleaning, DO 1600 [place] [address] documented as of this encounter Visit Diagnoses Not on filedocumented in this encounter Care Teams Phlebotomy Manager Relationship Specialty Start Date End Date Ansley Denney MD [address] [facility] 100 [place] [address] PCP - General Family Medicine 09/13/20 Ansley Denney MD [address] [facility] 100 [place] [address] Assigned PCP 08/14/20 Lan Ledbetter MD [address] [place] [address] [place] [address] Assigned Heart and Vascular Provider 09/21/23 documented as of this encounter
--- OUTSIDE RECORDS SUMMARY | 2024-03-19 05:17 | XMS_ITS | Encounter Summary ---
Author Organization [employer] Address [address] [place] [address]. [place] [address] Care Team Providers Care Foot Doctor Name Role Phone Ansley Denney MD Primary Care Provider [phone] Ansley Denney MD Unavailable Lan Ledbetter MD Unavailable [phone] Odilon Cleaning DO Unavailable [phone] Lan Ledbetter MD Unavailable [phone] Encounter Details Date Type Department Care Team (Late st Contact Info) Description 10/27/2022 [facility] Medical Advice [facility] [address] [place] [address] [place] [phone] Darrin Leavitt, PA-C [address] [place] [address] [phone] Social History Tobacco Use Types Packs/Day Years [...] CDT Travel History Travel Start Travel End [place] 02/22/2024 03/07/2024 COVID-19 Exposure Response Date Recorded In the last 10 days, have yo u been in contact with someone who was confirmed or suspected to have Coronavirus/COVID-19? No / Unsure 10/27/2022 9:12 AM CDT documented as of this encounter Plan of Treatment Upcoming Encounters Date Type Department Care Team (Late st Contact Info) Description 05/26/2024 1:00 PM CDT Ancillary Procedure [address], [address] [place] [phone] Nathan Drummond MD [address] [place] [address] 05/26/2024 2:20 PM CDT Office Visit [address] [place] [address] Nathan Drummond MD [address] [place] [address] Odilon Cleannig, DO [address] [place] [address] documented as of this encounter Visit Diagnoses Not on filedocumented in this encounter Care Teams Foot Doctor Relationship Specialty Start Date End Date Ansley Denney MD [address] [facility] [place] [address] PCP - General Family Medicine 09/13/20 Ansley Denney MD [address] [facility] [address] [place] [place] [address] Assigned PCP 08/14/20 Lan Ledbetter MD [address] [place] [place] [address] Assigned Heart and Vascular Provider 08/22/22 06/21/23 Odilon Cleaning DO [address] [place] [address] Assigned Heart and Vascular Provider 06/22/23 09/20/23 Lan Ledbetter MD [address] [place] [address] [place] [address] Assigned Heart and Vascular Provider 09/21/23 documented as of this encounter
--- OUTSIDE RECORDS SUMMARY | 2024-03-19 05:17 | XMS_ITS | Encounter Summary ---
Author Organization [facility] Address [address] [place] [address]. [place] [address] Care Team Providers Care Bowling Or Skating Front Desk Clerk Name Role Phone Ansley Denney MD Primary Care Provider [phone] Ansley Denney MD Unavailable [phone] Lan Ledbetter MD Unavailable [phone] Reason for Visit * Reason Comments Medication Refill Encounter Details Date Type Department Care Team (Late st Contact Info) Description 02/28/2024 Refill [facility] [place] [address] [facility] [address] [place] [phone] Odilon Cleaning, DO [address] [place], [place] [phone] Medication Refill Social History Tobacco Use Types [...] re latives? Once a week 08/19/2023 Attends [employer] Services Not on file 08/18 Active Member of Clubs or Organizations Not on f ile 08/19/2023 Attends Club or Organization Meetings Not on benjie e 08/19/2023 Marital Status Not on file 08/19/2023 PHQ-2 Answer Date Recorded PHQ-2 Score 0 08/24/2023 [facility] of Occupat ional Health - Occupational Stress [...] Answer Date Recorded Do you have housing? (Housin g is defined as stable permanent housing and does not include staying ouside in a car, in a tent, in an abandoned building, in an overnight senior living, or couch-surfing.) Yes 08/19/2023 Are you worried [...] CDT Travel History Travel Start Travel End [place] 02/22/2024 03/07/2024 documented as of this encounter Plan of Treatment Upcoming Encounters Date Type Department Care Team (Late st Contact Info) Description 05/26/2024 1:00 PM CDT Ancillary Procedure [address], [facility] 110 [place] [phone] Nathan Drummond MD [address] [place] [address] 05/26/2024 2:20 PM CDT Office Visit [address] [place] [phone] Nathan Drummond MD [address] [place] [address] Odilon Cleaning, DO [address] [place] [address] documented as of this encounter Visit Diagnoses Diagnosis Benign essential hypertension Essential hypertension, benign 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, abdominal documented in this encounter Care Teams Bowling Or Skating Front Desk Clerk Relationship Specialty Start Date End Date Ansley Denney MD [address] [place] [address] PCP - General Family Medicine 09/13/20 Ansley Denney MD [address] [place] [address] Assigned PCP 08/14/20 Lan Ledbetter MD [address] [place] [address] [place] [address] Assigned Heart and Vascular Provider 09/21/23 documented as of this encounter
--- OUTSIDE RECORDS SUMMARY | 2024-03-19 05:17 | XMS_ITS | Encounter Summary ---
Author Organization [facility] Address [address] [place] [address]. [place] [address] Care Team Providers Care Strip Winder Name Role Phone Ansley Denney MD Primary Care Provider [phone] Ansley Denney MD Unavailable [phone] Donna Hamlin MD Unavailable [phone] Lan Ledbetter MD Unavailable [phone] Donna Hamlin MD Unavailable [phone] Lan Ledbetter MD Unavailable [phone] Odilon Cleaning DO Unavailable Lan Ledbetter MD Unavailable [phone] Encounter Details Date Type Department Care Team (Late st Contact Info) Description 07/21/2022 [facility] [address] [place] [address], [address] [place] [phone] Ansley Denney MD [address] [place] [address] [place] [address] Social History Tobacco Use Types Packs/Day Years Used Date Smoking Tobacco: Never Smokeless Tobacco: Never Alcohol Use Standard Drinks/Week Comments Yes 0 (1 standard drink = 0.6 oz pure alcohol) Alcoholic Drinks/day: 1 glass wine daily PHQ-2 Answer Date Recorded PHQ-2 Score 0 07/22/2022 Sex and Gender Information Value Date Recorded Sex Assigned at Not on file Legal Sex Male 5:14 PM CDT Gender Identity Not on file Sexual Orientation Straight 08/09/2023 8: 33 AM CDT Travel History Travel Start Travel End [place] 02/22/2024 03/07/2024 COVID-19 Exposure Response Date Recorded In the last 10 days, have yo u been in contact with someone who was confirmed or suspected to have Coronavirus/COVID-19? No / Unsure 07/22/2022 12:59 PM CDT documented as of this encounter Plan of Treatment Upcoming Encounters Date Type Department Care Team (Late st Contact Info) Description 05/26/2024 1:00 PM CDT Ancillary Procedure [address], [facility] 110 [place] [address] Nathan Drummond MD [address] [place] [address] 05/26/2024 2:20 PM CDT Office Visit [address] [place] [phone] Nathan Drummond MD [address] [place] [address] Odilon Cleaning, DO [address] [place] [address] documented as of this encounter Visit Diagnoses Not on filedocumented in this encounter Care Teams Strip Winder Relationship Specialty Start Date End Date Ansley Denney MD [address] [facility] [place] [address] PCP - General Family Medicine 09/13/20 Ansley Denney MD [address] [facility] [place] [address] Assigned PCP 08/14/20 Donna Hamlin MD [address] [facility] [address] [place] [address] Assigned Heart and Vascular Provider 05/09/22 07/24/22 Lan Ledbetter MD [address] [place] [address] Assigned Heart and Vascular Provider 07/25/22 07/31/22 Donna Hamlin MD [address] [facility] [address] [place] [address] Assigned Heart and Vascular Provider 08/01/22 08/21/22 Lan Ledbetter MD [address] [place] [address] Assigned Heart and Vascular Provider 08/22/22 06/21/23 Odilon Cleaning DO [address] [facility] [address] Assigned Heart and Vascular Provider 06/22/23 09/20/23 Lan Ledbetter MD [address] [place] [address] Assigned Heart and Vascular Provider 09/21/23 documented as of this encounter
--- OUTSIDE RECORDS SUMMARY | 2024-03-19 05:17 | XMS_ITS | Encounter Summary ---
Author Organization [place] Address [address] [place] [address]. [place] [address] Care Team Providers Care Medical Screener Name Role Phone Ansley Denney MD Primary Care Provider [phone] Ansley Denney MD Unavailable [phone] Odilon Cleaning DO Unavailable + [phone] Lan Ledbetter MD Unavailable [phone] Encounter Details Date Type Department Care Team (Late st Contact Info) Description 08/24/2023 MyC Medical Advice [address] [place] [phone] Ansley Denney MD [address] [place] [address] [phone] Social History Tobacco Use Types Packs/Day Years [...] Answer Date Recorded PHQ-2 Score 0 08/24/2023 [facility] [place] of Occupat ional Health - Occupational Stress [...] in an abandoned building, in an overnight intermediate, or couch-surfing.) Yes 08/19/2023 Are you worried [...] CDT Travel History Travel Start Travel End [place] 02/22/2024 03/07/2024 documented as of this encounter Plan of Treatment Upcoming Encounters Date Type Department Care Team (Late st Contact Info) Description 05/26/2024 1:00 PM CDT Ancillary Procedure [address], [facility] 110 [place] [phone] Nathan Drummond MD [address] [place] [address] [phone] 05/26/2024 2:20 PM CDT Office Visit [address] [place] [phone] Nathan Drummond MD [address] [place] [address] Odilon Cleaning, DO 1600 [place] [address] documented as of this encounter Visit Diagnoses Not on filedocumented in this encounter Care Teams Medical Screener Relationship Specialty Start Date End Date Ansley Denney MD [address] [place] [facility] [place] [address] PCP - General Family Medicine 09/13/20 Ansley Denney MD [address] [place] [address] Assigned PCP 08/14/20 Odilon Cleaning DO 1600 [place] [address] Assigned Heart and Vascular Provider 06/22/23 09/20/23 Lan Ledbetter MD [address] [place] [address] [place] [address] Assigned Heart and Vascular Provider 09/21/23 documented as of this encounter
--- OUTSIDE RECORDS SUMMARY | 2024-03-19 05:17 | XMS_ITS | Encounter Summary ---
Author Organization [place] Address [address] [place] [address]. [place] [address] Care Team Providers Care Signal Tower Operator Name Role Phone Ansley Denney MD Primary Care Provider [phone] Ansley Denney MD Unavailable [phone] Lan Ledbetter MD Unavailable Encounter Details Date Type Department Care Team (Late st Contact Info) Description 03/15/2024 MyC Medical Advice [facility] [place] [address] [facility] [address] [place] [address] Odilon Cleaning, 1600 [place], [place] [id number] Social History Tobacco Use Types Packs/Day Years [...] re latives? Once a week 08/19/2023 Attends Worship Services Not on file 08/18 Active Member of Clubs or Organizations Not on f ile 08/19/2023 Attends Club or Organization Meetings Not on benjie e 08/19/2023 Marital Status Not on file 08/19/2023 PHQ-2 Answer Date Recorded PHQ-2 Score 0 08/24/2023 [facility] [place] [facility] - Occupational Stress Questionnaire Answer Date [...] in an abandoned building, in an overnight half-way, or couch-surfing.) Yes 08/19/2023 Are you worried [...] CDT Travel History Travel Start Travel End [place] 02/22/2024 03/07/2024 documented as of this encounter Plan of Treatment Upcoming Encounters Date Type Department Care Team (Late st Contact Info) Description 05/26/2024 1:00 PM CDT Ancillary Procedure [address], [place] [address] [place] [phone] Nathan Drummond MD [address] [place] [address] 05/26/2024 2:20 PM CDT Office Visit [address] [place] [address] Nathan Drummond MD [address] [place] [address] Odilon Cleaning, DO [address] [place] [address] documented as of this encounter Visit Diagnoses Not on filedocumented in this encounter Care Teams Signal Tower Operator Relationship Specialty Start Date End Date Ansley Denney MD [address] [facility] [place] [address] PCP - General Family Medicine 09/13/20 Ansley Denney MD [address] [facility] [place] [address] Assigned PCP 08/14/20 Lan Ledbetter MD [address] [place] [address] [place] [address] Assigned Heart and Vascular Provider 09/21/23 documented as of this encounter
--- OUTSIDE RECORDS SUMMARY | 2024-03-19 05:17 | XMS_ITS | Encounter Summary ---
Author Organization [place] Address [address] [place] [address]. [place] [address] Care Team Providers Care Councillor Aboriginal Land Council Name Role Phone Ansley Denney MD Primary Care Provider [phone] Ansley Denney MD Unavailable [phone] Lan Ledbetter MD Unavailable [phone] Odilon Cleaning DO Unavailable [phone] Lan Ledbetter MD Unavailable [phone] Encounter Details Date Type Department Care Team (Late st Contact Info) Description 12/27/2022 [facility] [place] [facility] [address] [place] [address] [place] [phone] Darrin Leavitt, PA-C [address] [place] [address] [phone] Social History Tobacco Use Types Packs/Day Years [...] Travel Start Travel End [place] 02/22/2024 03/07/2024 documented as of this encounter Plan of Treatment Upcoming Encounters Date Type Department Care Team (Late st Contact Info) Description 05/26/2024 1:00 PM CDT Ancillary Procedure [address], [facility] 110 [place] [phone] Nathan Drummond MD [address] [place] [address] 05/26/2024 2:20 PM CDT Office Visit [address] [place] [address] Nathan Drummond MD [address] [place] [address] Odilon Cleaning, DO 1600 [place] [address] documented as of this encounter Visit Diagnoses Not on filedocumented in this encounter Care Teams Councillor Aboriginal Land Council Relationship Specialty Start Date End Date Ansley Denney MD [address] [facility] [address] [address] PCP - General Family Medicine 09/13/20 Ansley Denney MD [address] [facility] [address] [place] [address] [place] [address] Assigned PCP 08/14/20 Lan Ledbetter MD [address] [facility] [address] [place] [address] Assigned Heart and Vascular Provider 08/22/22 06/21/23 Odilon Cleaning DO 1600 [place] [address] Assigned Heart and Vascular Provider 06/22/23 09/20/23 Lan Ledbetter MD [address] [place] [address] Assigned Heart and Vascular Provider 09/21/23 documented as of this encounter
--- OUTSIDE RECORDS SUMMARY | 2024-03-19 05:17 | XMS_ITS | Encounter Summary ---
Author Organization [facility] Address [address] [place] [address]. [place] [address] Care Team Providers Care Detail Technician Name Role Phone Ansley Denney MD Primary Care Provider [phone] Ansley Denney MD Unavailable [phone] Lan Ledbetter MD Unavailable [phone] Odilon Cleaning DO Unavailable [phone] Lan Ledbetter MD Unavailable [phone] Encounter Details Date Type Department Care Team (Late st Contact Info) Description 11/23/2022 MyC Medical Advice [facility] [address] [place] [address] [place] [phone] Darrin Leavitt, PA-C [address] [place] [address] [phone] Social History Tobacco Use Types Packs/Day Years [...] CDT Travel History Travel Start Travel End [place] 02/22/2024 03/07/2024 COVID-19 Exposure Response Date Recorded In the last 10 days, have yo u been in contact with someone who was confirmed or suspected to have Coronavirus/COVID-19? Unable to assess 11/23/2022 8:55 AM CDT documented as of this encounter Plan of Treatment Upcoming Encounters Date Type Department Care Team (Late st Contact Info) Description 05/26/2024 1:00 PM CDT Ancillary Procedure [address], [facility] 110 [place] [phone] Nathan Drummond MD [address] [place] [address] [phone] 05/26/2024 2:20 PM CDT Office Visit [address] [place] [address] Nathan Drummond MD [address] [place] [address] 459[address] Odilon Cleaning, DO 1600 [place] [address] documented as of this encounter Visit Diagnoses Not on filedocumented in this encounter Care Teams Detail Technician Relationship Specialty Start Date End Date Ansley Denney MD [address] [facility] [place] [address] PCP - General Family Medicine 09/13/20 Ansley Denney MD [address] [place] [address] Assigned PCP 08/14/20 Lan Ledbetter MD [address] [place] [address] [place] [address] Assigned Heart and Vascular Provider 08/22/22 06/21/23 Odilon Cleaning DO 1600 [place] [address] Assigned Heart and Vascular Provider 06/22/23 09/20/23 Lan Ledbetter MD [address] [place] [address] [place] [address] Assigned Heart and Vascular Provider 09/21/23 documented as of this encounter
--- OUTSIDE RECORDS SUMMARY | 2024-03-19 05:17 | XMS_ITS | Encounter Summary ---
Author Organization [place] Address [address] [place] [address]. [place] [address] Care Team Providers Care Electrical Engineering Drafting Officer Name Role Phone Ansley Denney MD Primary Care Provider [phone] Ansley Denney MD Unavailable [phone] Odilon Cleaning DO Unavailable + [phone] Lan Ledbetter MD Unavailable [phone] Encounter Details Date Type Department Care Team (Late st Contact Info) Description 08/14/2023 MyC Medical Advice [address] [place] [phone] Ansley Denney MD [address] [place] [address] [phone] Social History Tobacco Use Types Packs/Day Years Used Date Smoking Tobacco: Never Passive Smoke Exposure: Never Smokeless Tobacco: Never Alcohol Use Standard Drinks/Week Comments Yes 0 (1 standard drink = 0.6 oz pure alcohol) Alcoholic Drinks/day: 1 glass wine daily PHQ-2 Answer Date Recorded PHQ-2 Score 0 08/18/2023 Adolescent Education Answer Date Record ed Getting School Help Needed Not on file 11/21 Sex and Gender Information Value Date Recorded Sex Assigned at Not on file Legal Sex Male 5:14 PM CDT Gender Identity Not on file Sexual Orientation Straight 08/09/2023 8: 33 AM CDT Travel History Travel Start Travel End [place] 02/22/2024 03/07/2024 documented as of this encounter Plan of Treatment Upcoming Encounters Date Type Department Care Team (Late st Contact Info) Description 05/26/2024 1:00 PM CDT Ancillary Procedure [place] [id number] [facility], [place] [address] [place] [phone] Nathan Drummond MD [address] [place] [address] 05/26/2024 2:20 PM CDT Office Visit [address] [place] [phone] Nathan Drummond MD [address] [place] [address] Odilon Cleaning DO 1600 [place] [address] documented as of this encounter Visit Diagnoses Not on filedocumented in this encounter Care Teams Electrical Engineering Drafting Officer Relationship Specialty Start Date End Date Ansley Denney MD [address] [facility] [address] [place] [address] [place] [address] PCP - General Family Medicine 09/13/20 Ansley Denney MD [address] [facility] [address] [place] [facility] [place] [address] Assigned PCP 08/14/20 Odilon Cleaning DO 1600 [place] [address] Assigned Heart and Vascular Provider 06/22/23 09/20/23 Lan Ledbetter MD [address] [facility] [address] [place] [address] Assigned Heart and Vascular Provider 09/21/23 documented as of this encounter
--- OUTSIDE RECORDS SUMMARY | 2024-03-19 05:17 | XMS_ITS | Encounter Summary ---
Author Organization [place] Address [facility] access hospital0 [facility] [place] [address] Care Team Providers Care Metal Dealer Name Role Phone Ansley Denney MD Primary Care Provider [phone] Ansley Denney MD Unavailable [phone] Lan Ledbetter MD Unavailable Encounter Details Date Type Department Care Team (Late st Contact Info) Description 03/04/2024 MyC Medical Advice [facility] [address] [place] [address] Lan Ledbetter MD [address] [address] [place], [place] [address] Social History Tobacco Use Types Packs/Day Years [...] Answer Date Recorded PHQ-2 Score 0 08/24/2023 [facility] [place] of Occupat ional Health - Occupational Stress [...] in an abandoned building, in an overnight skilled nursing, or couch-surfing.) Yes 08/19/2023 Are you worried [...] Travel Start Travel End [place] 02/22/2024 03/07/2024 documented as of this encounter Plan of Treatment Upcoming Encounters Date Type Department Care Team (Late st Contact Info) Description 05/26/2024 1:00 PM CDT Ancillary Procedure [address], [place] [address] [place] [address] Nathan Drummond MD [address] [place] [address] 05/26/2024 2:20 PM CDT Office Visit [address] [place] [address] Nathan Drummond MD [address] [place] [address] Odilon Cleaning, DO 1600 [place] [address] documented as of this encounter Visit Diagnoses Not on filedocumented in this encounter Care Teams Metal Dealer Relationship Specialty Start Date End Date Ansley Denney MD [address] [facility] [place] [address] PCP - General Family Medicine 09/13/20 Ansley Denney MD [address] [facility] [place] [address] Assigned PCP 08/14/20 Lan Ledbetter MD [address] [facility] [address] [place] [address] Assigned Heart and Vascular Provider 09/21/23 documented as of this encounter
--- OUTSIDE RECORDS SUMMARY | 2024-03-19 05:17 | XMS_ITS | Encounter Summary ---
Author Organization [place] Address [address] [place] [address]. [place] [address] Care Team Providers Care Library Helper Name Role Phone Ansley Denney MD Primary Care Provider [phone] Ansley Denney MD Unavailable [phone] Donna Hamlin MD Unavailable [phone] Lan Ledbetter MD Unavailable [phone] Odilon Cleaning DO Unavailable + [phone] Lan Ledbetter MD Unavailable [phone] Encounter Details Date Type Department Care Team (Late st Contact Info) Description 08/13/2022 [facility] Medical Advice [address] [place] [phone] Ansley Denney MD [address] [place] [address] Social History Tobacco Use Types Packs/Day Years [...] CDT Travel History Travel Start Travel End [place] 02/22/2024 03/07/2024 COVID-19 Exposure Response Date Recorded In the last 10 days, have dima whittaker been in contact with someone who was confirmed or suspected to have Coronavirus/COVID-19? No / Unsure 08/11/2022 9:04 AM CDT documented as of this encounter Plan of Treatment Upcoming Encounters Date Type Department Care Team (Late st Contact Info) Description 05/26/2024 1:00 PM CDT Ancillary Procedure [address], [facility] 110 [place] [phone] Nathan Drummond MD [address] [place] [address] 05/26/2024 2:20 PM CDT Office Visit [address] [place] [address] Nathan Drummond MD [address] [place] [address] [phone] Odilon Cleaning, DO 1600 [place] [address] documented as of this encounter Visit Diagnoses Not on filedocumented in this encounter Care Teams Library Helper Relationship Specialty Start Date End Date Ansley Denney MD [address] [facility] [address] [place] [facility] [id number] PCP - General Family Medicine 09/13/20 Ansley Denney MD [address] [facility] [address] [place] 100 [place] [id number] Assigned PCP 08/14/20 Donna Hamlin MD [address] [facility] [place] 200 [place] [id number] Assigned Heart and Vascular Provider 08/01/22 08/21/22 Lan Ledbetter MD [address] [place] [address] [place] [address] Assigned Heart and Vascular Provider 08/22/22 06/21/23 Odilon Cleaning DO [address] [facility] [place] [address] Assigned Heart and Vascular Provider 06/22/23 09/20/23 Lan Ledbetter MD [address] [place] [address] [place] [address] Assigned Heart and Vascular Provider 09/21/23 documented as of this encounter
--- OUTSIDE RECORDS SUMMARY | 2024-03-19 05:17 | XMS_ITS | Encounter Summary ---
Author Organization [place] Address [address] [place] [address]. [place] [address] Care Team Providers Care Lehr Cutter Name Role Phone Ansley Deneny MD Primary Care Provider [phone] Ansley Denney MD Unavailable [phone] Lan Ledbetter MD Unavailable [phone] Reason for Referral * CV Testing (Routine) - Closed Specialty [...] [facility] STATISTIC IV PUSH SINGLE INITIAL SUBSTANCE TX DOPPLER ECHO PULSED, F/U OR LIMITED TX DOPPLER ECHO COLOR FLOW VELOCITY MAP TX ECHO HEART XTHORACIC, STRESS/REST TX INJECTION, PERFLUTREN LIPID MICROSPHERES, PER ML TX IV PUSH SINGLE, INITIAL SUBSTANCE TX ECHO HEART XTHORACIC, STRESS/REST TX ECHO HEART XTHORACIC, STRESS/REST HC DOPPLER ECHO PULSED, F/U OR LIMITED HC DOPPLER ECHO COLOR FLOW VELOCITY MAP HC IV PUSH SINGLE, INITIAL SUBSTANCE HC STATISTIC IV PUSH SINGLE INITIAL SUBSTANCE HC ECHO TRANSTHORACIC, STRESS/REST W CONTRAST HC ECHO TRANSTHORACIC, STRESS/REST W/O CONTRAST Odilon Cleaning DO [address] [place] [address] Phone: tel: fax: [facility] [address] [place] [address] Phone: tel: fax: Referral ID Status Reason Start Date Expiration Date Visits Re quested Visits Authorized [id number] Closed 03/06/2024 03/06/2025 1 1 E BUILDER Encounter Details Date Type Department Care Team (Late st Contact Info) Description 03/04/2024 MyC Medical Advice [facility] [place] [address] [facility] [place] [address] [place] [address] Odilon Cleaning DO [address] [place] [address] CAD (coronary artery disease) (Primary Dx); HLD (hyperlipidemia); HTN (hypertension); Coronary artery calcification seen on CT scan Social History Tobacco Use Types Packs/Day Years [...] re latives? Once a week 08/19/2023 Attends Yazidi Services Not on file 08/18 Active Member of Clubs or Organizations Not on f ile 08/19/2023 Attends Club or Organization Meetings Not on benjie e 08/19/2023 Marital Status Not on file 08/19/2023 PHQ-2 Answer Date Recorded PHQ-2 Score 0 08/24/2023 [facility] [place] of Occupat ional Health - Occupational Stress [...] Answer Date Recorded Do you have housing? (Anuradhain g is defined as stable permanent housing [...] Start Travel End [place] 02/22/2024 03/07/2024 documented as of this encounter Miscellaneous Notes * Telephone Encounter - Molly Naranjo RN - 03/06/2024 9:47 AM CST Order placed and msg sent to scheduling pool. aj Msg received: From: Odilon Cleaning DO Sent: 03/04/2024 12:40 PM STAGE BUILDER To: [facility] Button Breaker Team Z Subject: FW: Question about CTA scan report Please set up patient for Treadmill Stress echo: Indication: CAD, HLD, Hypertension and severe coronary calcification on CT. Beta blocks to be held for stress testing. E BUILDER documented in this encounter Plan of Treatment Upcoming Encounters Date Type Department Care Team (Late st Contact Info) Description 05/26/2024 1:00 PM CDT Ancillary Procedure [address], [facility] 110 [place] [phone] Nathan Drummond MD [address] [place] [address] [id number] 05/26/2024 2:20 PM CDT Office Visit [address] [place] [address] Nathan Drummond MD [address] [place] [address] [phone] Odilon Cleaning DO [address] [place], [place] [phone] documented as of this encounter Procedures Procedure Name Priority Date/Time Associated Diagnosis Comments ECHO EXERCISE STRESS TEST WITH CONTRAST Routine 03/08/2024 9:03 AM STAGE BUILDER CAD (coronary artery disease) HLD (hyperlipidemia) HTN (hypertension) Coronary artery calcification seen on CT scan documented in this encounter Results * ECHO EXERCISE STRESS TEST WITH CONTRAST (03/08/2024 9:03 AM STAGE BUILDER) Pharmacologic Protocol Stress Echo CARDIOLOGY RESULTS Test [...] Ultrasound, Ultr asound, Other 03/08/2024 8:25 AM STAGE BUILDER Narrative 03/08/2024 9:34 AM STAGE BUILDER [id number]^MIHIR^ODILON^[place] [address] Name: OLAYINKA VEE : 1945 Study Date: 03/08/2024 08:25 AM Age: 78 yrs Gender: Male Patient Location: [facility] Reason For Study: CAD (coronary artery disease), HLD (hyperlipidemia), HTN (hypert Ordering Physician: ODILON CLEANING Referring Physician: ODILON CLEANING Performed By: YAHIR BSA: 2.0 m2 Height: 71 in Weight: 176 lb HR: 69 BP: 156/79 mmHg Procedure Stress Echo Treadmill with two dimensional, color and spectral Doppler. Definity contrast given intravenously [[facility] #[id number]]. Interpretation Summary 1. Probable normal stress echocardiogram, [...] Exercise was stopped due to fatigue. RPP [id number]. Stress Results Protocol: Dany Maximum Predicted HR: [...] Procedure Note Chino Abraham MD - 03/08/2024 [id number]^MIHIR^ODILON^[place] [address] Name: OLAYINKA VEE : 1945 Study Date: 03/08/2024 08:25 AM Age: 78 yrs Gender: Male Patient Location: [facility] Reason For Study: CAD (coronary artery disease), HLD (hyperlipidemia),HTN (hypert Ordering Physician: ODILON CLEANING Referring Physician: ODILON CLEANING Performed By: YAHIR BSA: 2.0 m2 Height: 71 in Weight: 176 lb HR: 69 BP: 156/79 mmHg Procedure Stress Echo Treadmill with two dimensional, color and spectral Doppler. Definity contrast given intravenously [[facility] #[id number]]. Interpretation Summary 1. Probable normal stress echocardiogram, [...] Exercise was stopped due to fatigue. RPP 63876. Stress Results Protocol: Dany Maximum Predicted HR: [...] ECHO ORDERABLES [place] akshat Result - Final documented in this encounter Visit Diagnoses Diagnosis CAD (coronary artery disease)- Primary Coronary atherosclerosis of unspecified type of vessel, [place] or graft HLD (hyperlipidemia) Other and unspecified hyperlipidemia HTN (hypertension) Unspecified essential hypertension Coronary artery calcification seen on CT scan documented in this encounter Care Teams Lehr Cutter Relationship Specialty Start Date End Date Ansley Denney MD [address] [place] [address] PCP - General Family Medicine 09/13/20 Ansley Denney MD [address] [place] [address] Assigned PCP 08/14/20 Lan Ledbetter MD [address] [place] [place] [address] Assigned Heart and Vascular Provider 09/21/23 documented as of this encounter
--- OUTSIDE RECORDS SUMMARY | 2024-03-19 05:17 | XMS_ITS | Encounter Summary ---
Author Organization [place] Address [address] [place] [address]. [place] [address] Care Team Providers Care Beef Cattle Grazier Name Role Phone Ansley Denney MD Primary Care Provider [phone] Ansley Denney MD Unavailable [phone] Lan Ledbetter MD Unavailable [phone] Reason for Visit * CV Testing (Routine) - Pending Review Specialty Diagnoses / Procedures Referred By Zackary mandel Referred To Contact Diagnoses Pacemaker Sick sinus syndrome (H) Complete heart block (H) Procedures Cardiac Device Check - Remote Nathan Drummond MD [address] [place] [address] Phone: tel: fax: Referral ID Status Reason Start Date Expiration Date V isits Requested Visits Authorized [id number] Pending Review 05/11/2023 05/10/2024 100 100 Encounter Details Date Type Department Care Team (Latest Contact Info) Description 03/14/2024 Ancillary Procedure [facility] Heart [facility] [address] [facility] [address] [place] [phone] Nathan Drummond MD [address] [place] [address] Pacemaker; Sick sinus syndrome (H); Complete heart block (H) Social History Tobacco Use Types Packs/Day Years [...] re latives? Once a week 08/19/2023 Attends [employer] Services Not on file 08/18 Active Member of Clubs or Organizations Not on f ile 08/19/2023 Attends Club or Organization Meetings Not on benjie e 08/19/2023 Marital Status Not on file 08/19/2023 PHQ-2 Answer Date Recorded PHQ-2 Score 0 08/24/2023 [facility] of Occupat ional Health - Occupational Stress [...] Description 05/26/2024 1:00 PM CDT Ancillary Procedure [address], [facility] 110 [place] [phone] Nathan Drummond MD [address] [place] [id number] 05/26/2024 2:20 PM CDT Office Visit [address] [place] [address] Nathan Drummond MD [address] [place] [address] Odilon Cleaning, DO [address] [place] [address] documented as of this encounter Procedures Procedure Name Priority Date/Time Associated Diagnosis Comments INTERROGATION DEVICE EVAL REMOTE PACER UP TO 90 DAYS Routine 03/14/2024 10:23 AM ZINC CHLORIDE OPERATOR Pacemaker Sick sinus syndrome (H) Complete heart block (H) documented in this encounter Results * INTERROGATION DEVICE EVAL REMOTE PACER UP TO 90 DAYS (03/14/2024 10:23 AM ZINC CHLORIDE OPERATOR) Date Time Interrogation Session [id number] [employer] Implantable Pulse Generator Chef French Medtronic [employer] Implantable Pulse Generator Model [id number] Nery XT DR MRI [employer] Implantable Pulse Generator Serial Number [id number] MED[employer]ONIC Type Interrogation Session Remote Scheduled [facility] [employer] Implantable Pulse Generator Type Pacemaker MED[employer]IC Implantable Pulse Generator Implant Date 20201016 MED[employer]IC Implantable Lead Chef French Medtronic MED[employer]ONIC Implantable Lead Model 5076 CapSureFix Novus MRI SureScan [employer] Implantable Lead Serial Number [id number] [employer]IC Implantable Lead Implant Date 20201016 MED[employer] Implantable Lead Polarity Type Bipolar Lead [employer] Implantable Lead Location Detail 1 UNKNOWN MED[employer] Implantable Lead Location Right Atrium [employer] Implantable Lead Connection Status Connected [employer] Implantable Lead Chef French Medtronic [employer] Implantable Lead Model 5076 CapSureFix Novus MRI SureScan [employer] Implantable Lead Serial Number [id number] [employer]ONIC Implantable Lead Implant Date 20201016 MEDTRONIC [...] Channel Pacing Threshold Pulse Width 0.4 ms Fortegra [employer] Battery Date Time of Measurements [id number] [employer] Battery Status OK MEDTR[employer]IC Battery RENAL DIETITIAN Trigger 2.625 [employer]IC Battery Remaining Longevity 141 mo MED[employer] Battery Voltage 3.02 V MEDTRONIC Lupillo Statistic Date Time Start [id number] MED[employer]IC Lupillo Statistic Date Time End [id number] [employer] Lupillo Statistic RA Percent Paced 12.24 % [employer] Lupillo Statistic RV Percent Paced 95.07 % [employer] Lupillo Statistic AP SOFTWARE ENGINEER MOBILE Percent 11.34 % [employer] Lupillo Statistic SOFTWARE ENGINEER MOBILE Percent 83.73 % [employer] Lupillo Statistic AP VS Percent 0.54 % MED[employer]IC Lupillo Statistic VS Percent 4.39 % [employer] Atrial Tachy Statistic Date Time Start [id number] MED[employer]IC Atrial Tachy Statistic Date Time End [id number] [employer] Atrial Tachy Statistic AT/AF Grayson Percent 0 % [employer] Therapy Statistic Recent Date Time Start [id number] [employer] Therapy Statistic Recent Date Time End [id number] [employer] Therapy Statistic Total Date Time Start 76173218153582 [employer] Therapy Statistic Total Date Time End [id number] MEDTRONIC Episode Statistic Recent Count 0 MEDTRONIC [...] MEDTRONIC Episode Statistic Recent Date Time Start [id number] MEDTRONIC Episode Statistic Recent Date Time End [id number] MEDTRONIC Episode Statistic Recent Date Time Start [id number] MEDTRONIC Episode Statistic Recent Date Time End [id number] [employer]TRONIC Episode Statistic Recent Date Time Start [id number] MEDTRONIC Episode Statistic Recent Date Time End [id number] MEDTRONIC Episode Statistic Recent Date Time Start [id number] MEDTRONIC Episode Statistic Recent Date Time End 65397093035476 MEDTRONIC Episode Statistic Recent Date Time Start [id number] MEDTRONIC Episode Statistic Recent Date Time End [id number] MEDTRONIC Episode Statistic Total Count 0 MEDTRONIC [...] MEDTRONIC Episode Statistic Total Date Time Start MEDTRONIC Episode Statistic Total Date Time End MEDTRONIC Episode Statistic Total Date Time Start MEDTRONIC Episode Statistic Total Date Time End MEDTRONIC Episode Statistic Total Date Time Start MEDTRONIC Episode Statistic Total Date Time End MEDTRONIC Episode Statistic Total Date Time Start MEDTRONIC Episode Statistic Total Date Time End MEDTRONIC Episode Statistic Total Date Time Start MEDTRONIC Episode Statistic Total Date Time End MEDTRONIC Episode Identifier 321 MEDTRONIC Episode Type Category VT MEDTRONIC Episode Date Time [id number] MED[employer]IC Episode Duration 1 s MEDTRONIC Anatomical Region Laterality Modality Other 03/14/2024 3:46 AM ZINC CHLORIDE OPERATOR Narrative 03/15/2024 4:23 PM ZINC CHLORIDE OPERATOR Encounter Type: routine remote pacemaker transmission. Device: Medtronic [place] Pacing % /Programmed: AP 12%, SOFTWARE ENGINEER MOBILE 95% at AAI<=>DDD 50/130 ppm. Lead(s): stable. Battery longevity: 11yrs, 9mo estimated. Presenting: -SOFTWARE ENGINEER MOBILE 45 bpm. Atrial high rates: since 11/26/23; none detected. Anticoagulant: None. Ventricular High rates: since 11/26/23; one ventricular high rate episode, appears to be NSVT 5bts. Comments: Normal device function. Plan: Patient scheduled for annual device check on 05/26/24 at 1:00PM at our [facility] location. E. Pivec, Device Specialist Device [...] CV CARDIAC SERVICES ORDERAB LES Final Result documented in this encounter Visit Diagnoses Diagnosis Pacemaker Cardiac pacemaker in situ Sick sinus syndrome (H) Sinoatrial node dysfunction Complete heart block (H) Atrioventricular block, complete documented in this encounter Care Teams Beef Cattle Grazier Relationship Specialty Start Date End Date Ansley Denney MD [address] [facility] [address] [place] [address] PCP - General Family Medicine 09/13/20 Ansley Denney MD [address] [facility] [address] [place] [address] Assigned PCP 08/14/20 Lan Ledbetter MD [address] [place] [address] Assigned Heart and Vascular Provider 09/21/23 documented as of this encounter
--- OUTSIDE RECORDS SUMMARY | 2024-03-19 05:18 | XMS_ITS | Encounter Summary ---
Author Organization [place] Address [address] [place] [address]. [place] [address] Care Team Providers Care Rn Primary Care Name Role Phone Ansley Denney MD Primary Care Provider [phone] Ansley Denney MD Unavailable [phone] Lan Ledbetter MD Unavailable [phone] Donna Hamlin MD Unavailable [phone] Lan Ledbettre MD Unavailable [phone] Donna Hamlin MD Unavailable [phone] Lan Ledbetter MD Unavailable [phone] Odilon Cleaning DO Unavailable [phone] Lan Ledbetter MD Unavailable [phone] Encounter Details Date Type Department Care Team (Late st Contact Info) Description 08/07/2021 [facility] Medical Advice [facility] [address] [place] [address] S, [address] [place] [address] Ansley Denney MD [address] [place] [address] [address] [place] [address] Social History Tobacco Use Types Packs/Day Years [...] CDT Travel History Travel Start Travel End [place] 02/22/2024 03/07/2024 COVID-19 Exposure Response Date Recorded In the last 10 days, have yo u been in contact with someone who was confirmed or suspected to have Coronavirus/COVID-19? No / Unsure 08/07/2021 8:25 AM CDT documented as of this encounter Plan of Treatment Upcoming Encounters Date Type Department Care Team (Late st Contact Info) Description 05/26/2024 1:00 PM CDT Ancillary Procedure [address], [facility] [address] [place] [address] Nathan Drummond MD [address] [place] [address] 05/26/2024 2:20 PM CDT Office Visit [address] [place] [address] Nathan Drummond MD [address] [place] [address] Odilon Cleaning, DO [address] [place] [address] documented as of this encounter Visit Diagnoses Not on filedocumented in this encounter Care Teams Rn Primary Care Relationship Specialty Start Date End Date Ansley Denney MD [address] [facility] [address] [place] [address] PCP - General Family Medicine 09/13/20 Ansley Denney MD [address] [facility] [address] [place] [address] Assigned PCP 08/14/20 Lan Ledbetter MD [address] [place] [address] Assigned Heart and Vascular Provider 08/02/21 05/08/22 Donna Hamlin MD [address] [facility] [address] [place] [address] Assigned Heart and Vascular Provider 05/09/22 07/24/22 Lan Ledbetter MD [address] [place] [address] Assigned Heart and Vascular Provider 07/25/22 07/31/22 Donna Hamlin MD [address] [facility] [address] [place] [address] Assigned Heart and Vascular Provider 08/01/22 08/21/22 Lan Ledbetter MD [address] [place] [address] Assigned Heart and Vascular Provider 08/22/22 06/21/23 Odilon Cleaning DO [address] [place] [address] Assigned Heart and Vascular Provider 06/22/23 09/20/23 Lan Ledbetter MD [address] [place] [address] Assigned Heart and Vascular Provider 09/21/23 documented as of this encounter
--- OUTSIDE RECORDS SUMMARY | 2024-03-19 05:18 | XMS_ITS | Encounter Summary ---
Author Organization [place] Address [address] [place] [address]. [place] [address] Care Team Providers Care Sergeant Missile Crewman Name Role Phone Ansley Denney MD Primary Care Provider [phone] Ansley Denney MD Unavailable [phone] Donna Hamlin MD Unavailable [phone] Lan Ledbetter MD Unavailable [phone] Donna Hamlin MD Unavailable [phone] Lan Ledbetter MD Unavailable [phone] Donna Hamlin MD Unavailable [phone] Lan Ledbetter MD Unavailable [phone] Odilon Cleaning DO Unavailable [phone] Lan Ledbetter MD Unavailable [phone] Reason for Visit * Reason Comments Medication Refill Encounter Details Date Type Department Care Team (Late st Contact Info) Description 07/15/2021 Refill [facility] [place] [address] [place] [address] [place], [place] [address] [place] [phone] Ansley Denney MD [address] [facility] 100 [place] [address] Medication Refill Social History Tobacco Use Types Packs/Day Years Used Date Smoking Tobacco: Never Smokeless Tobacco: Never Alcohol Use Standard Drinks/Week Comments Yes 0 (1 standard drink = 0.6 oz pure alcohol) Alcoholic Drinks/day: 1 glass wine daily PHQ-2 Answer Date Recorded PHQ-2 Score 0 02/19/2020 Sex and Gender Information Value Date Recorded Sex Assigned at Not on file Legal Sex Male 5:14 PM CDT Gender Identity Not on file Sexual Orientation Straight 08/09/2023 8: 33 AM CDT Travel History Travel Start Travel End [place] 02/22/2024 03/07/2024 COVID-19 Exposure Response Date Recorded In the last 10 days, have yo u been in contact with someone who was confirmed or suspected to have Coronavirus/COVID-19? No / Unsure 07/16/2021 8:50 AM CDT documented as of this encounter Miscellaneous Notes * Telephone Encounter - Jorge Luis Farrell RN - 07/16/2021 11:15 AM CDT Routing refill request to provider for review/approval because: A break in medication Patient needs to be seen because it has been more than 1 year since last office visit. Last Written Prescription Date: 05/24/20 Last Fill Quantity: 180, # refills: 2 Last office visit provider: 02/19/20 Requested Prescriptions Pending Prescriptions Disp Refills ??? famotidine (PEPCID) 20 MG tablet [Pharmacy Med Name: FAMOTIDINE 20 MG TABLET] 180 tablet 2 Sig: TAKE 1 TABLET BY MOUTH 2 TIMES A DAY NEEDED FOR HEARTBURN. H2 Blockers Protocol Passed - 07/16/2021 11:15 AM Passed - Patient is age 12 or older Passed - Recent (12 mo) or future (30 days) visit within the authorizing provider's specialty Patient has had an office visit with the authorizing provider or a provider within the authorizing providers department within the previous 12 mos or has a future within next 30 days. See Patient Info tab in inbasket, or Choose Columns in Meds & Orders section of the refill encounter. Passed - Medication is active on med list Jorge Luis Farrell RN 07/16/21 11:15 AM documented in this encounter Plan of Treatment Upcoming Encounters Date Type Department Care Team (Late st Contact Info) Description 05/26/2024 1:00 PM CDT Ancillary Procedure [facility] [address] [facility], [place] [address] [place] [address] Nathan Drummond MD [address] [place], [place] [address] 05/26/2024 2:20 PM CDT Office Visit [facility] [address] [facility] [address] [place] [address] Nathan Drummond MD [address] [place], [place] [address] Odilon Cleaning, DO 1600 [place] [address] documented as of this encounter Visit Diagnoses Diagnosis Gastroesophageal reflux disease without esophagitis Esophageal reflux documented in this encounter Care Teams Sergeant Missile Crewman Relationship Specialty Start Date End Date Ansley Denney MD [address] [facility] 100 [place] [address] PCP - General Family Medicine 09/13/20 Ansley Denney MD [address] [facility] 100 [place] [address] Assigned PCP 08/14/20 Donna Hamlin MD 1700 [facility] 200 [place] [address] Assigned Heart and Vascular Provider 10/13/20 08/01/21 Lan Ledbetter MD [address] [facility] 340 [place] [address] Assigned Heart and Vascular Provider 08/02/21 05/08/22 Donna Hamlin MD [address] [facility] [address] [place] [address] Assigned Heart and Vascular Provider 05/09/22 07/24/22 Lan Ledbetter MD [address] [place] [address] [place] [address] Assigned Heart and Vascular Provider 07/25/22 07/31/22 Donna Hamlin MD [address] [facility] [place] 200 [place] [address] Assigned Heart and Vascular Provider 08/01/22 08/21/22 Lan Ledbetter MD [address] [place] [address] [place] [address] Assigned Heart and Vascular Provider 08/22/22 06/21/23 Odilon Cleaning DO [address] [place] [address] Assigned Heart and Vascular Provider 06/22/23 09/20/23 Lan Ledbetter MD [address] [place] [address] Assigned Heart and Vascular Provider 09/21/23 documented as of this encounter
--- OUTSIDE RECORDS SUMMARY | 2024-03-19 05:18 | XMS_ITS | Encounter Summary ---
Author Organization [place] Address [address] [place] [address]. [place] [address] Care Team Providers Care Supply Chain Vice President Name Role Phone Ansley Denney MD Primary Care Provider [phone] Ansley Denney MD Unavailable [phone] Donna Hamlin MD Unavailable [phone] Lan Ledbetter MD Unavailable [phone] Donna Hamlin MD Unavailable [phone] Lan Ledbetter MD Unavailable [phone] Donna Hamlin MD Unavailable [phone] Lan Ledbetter MD Unavailable [phone] Odilon Cleaning DO Unavailable [phone] Lan Ledbetter MD Unavailable [phone] Encounter Details Date Type Department Care Team (Late st Contact Info) Description 10/02/2020 [facility] Medical Advice [facility] [address] [place] [address] S, [address] [address] [place] [address] Ansley Denney MD [address] [place] [address] [address] [place] [address] Social History Tobacco Use Types Packs/Day Years [...] Exposure Response Date Recorded In the last month, have you been in contact with someone who was confirmed or suspected to have Coronavirus / COVID-19? No / Unsure 09/25/2020 10:31 AM CDT documented as of this encounter Plan of Treatment Upcoming Encounters Date Type Department Care Team (Late st Contact Info) Description 05/26/2024 1:00 PM CDT Ancillary Procedure [address] [place] [address] Nathan Drummond MD [address] [place] [address] 05/26/2024 2:20 PM CDT Office Visit [address] [place] [address] Nathan Drummond MD [address] [place] [address] Odilon Cleaning, DO 1600 [place] [address] documented as of this encounter Visit Diagnoses Not on filedocumented in this encounter Care Teams Supply Chain Vice President Relationship Specialty Start Date End Date Ansley Denney MD [address] [facility] [address] [place] [address] PCP - General Family Medicine 09/13/20 Ansley Denney MD [address] [facility] [address] [place] [address] Assigned PCP 08/14/20 Donna Hamlin MD [address] [facility] [address] [place] [address] Assigned Heart and Vascular Provider 10/13/20 08/01/21 Lan Ledbetter MD [address] [place] [address] Assigned Heart and Vascular Provider 08/02/21 05/08/22 Donna Hamlin MD [address] [facility] [address] [facility] [place] [address] Assigned Heart and Vascular Provider 05/09/22 07/24/22 Lan Ledbetter MD [address] [place] [address] [place] [address] Assigned Heart and Vascular Provider 07/25/22 07/31/22 Donna Hamlin MD [address] [facility] [address] [place] [address] Assigned Heart and Vascular Provider 08/01/22 08/21/22 Lan Ledbetter MD [address] [facility] [address] [place] [address] Assigned Heart and Vascular Provider 08/22/22 06/21/23 Odilon Cleaning DO [address] [place] [address] Assigned Heart and Vascular Provider 06/22/23 09/20/23 Lan Ledbetter MD [address] [place] [address] [place] [address] Assigned Heart and Vascular Provider 09/21/23 documented as of this encounter
--- OUTSIDE RECORDS SUMMARY | 2024-03-19 05:18 | XMS_ITS | Encounter Summary ---
Author Organization [place] Address [facility] [address] Care Team Providers Care Supervisor Cell Room Name Role Phone Ansley Denney MD Primary Care Provider [phone] Ansley Denney MD Unavailable [phone] Donna aHmlin MD Unavailable [phone] Lan Ledbetter MD Unavailable [phone] Donna Hamlin MD Unavailable [phone] Lan Ledbetter MD Unavailable [phone] Donna Hamlin MD Unavailable [phone] Lan Ledbetter MD Unavailable [phone] Odilon Cleaning DO Unavailable Lan Ledbetter MD Unavailable [phone] Encounter Details Date Type Department Care Team (Late st Contact Info) Description 03/31/2021 [facility] [place] [address] [place] [phone] Donna Hamlin MD [address] [facility] [address] [place], [place] [id number] Social History Tobacco Use Types Packs/Day Years [...] CDT Travel History Travel Start Travel End [place] 02/22/2024 03/07/2024 documented as of this encounter Plan of Treatment Upcoming Encounters Date Type Department Care Team (Late st Contact Info) Description 05/26/2024 1:00 PM CDT Ancillary Procedure [address], [facility] 110 [place] [phone] Nathan Drummond MD [address] [place] [address] 05/26/2024 2:20 PM CDT Office Visit [address] [place] [address] Nathan Drummond MD [address] [place] [address] Odilon Cleaning, DO 1600 [place] [address] documented as of this encounter Visit Diagnoses Not on filedocumented in this encounter Care Teams Supervisor Cell Room Relationship Specialty Start Date End Date Ansley eDnney MD [address] [place] [address] PCP - General Family Medicine 09/13/20 Ansley Denney MD [address] [place] [address] [address] Assigned PCP 6/16/21 Donna Hamlin MD [address] [facility] [place] [place] [address] Assigned Heart and Vascular Provider 10/13/20 08/01/21 Lan Ledbetter MD [address] [place] [address] [place] [address] Assigned Heart and Vascular Provider 08/02/21 05/08/22 Donna Hamlin MD [address] [facility] [place] [address] [place] [address] Assigned Heart and Vascular Provider 05/09/22 07/24/22 Lan Ledbetter MD [address] [place] [address] [place] [address] Assigned Heart and Vascular Provider 07/25/22 07/31/22 Donna Hamlin MD [address] [facility] [address] [place] [address] Assigned Heart and Vascular Provider 08/01/22 08/21/22 Lan Ledbetter MD [address] [place] [place] [address] Assigned Heart and Vascular Provider 08/22/22 06/21/23 Odilon Cleaning DO [address] [place] [address] Assigned Heart and Vascular Provider 06/22/23 09/20/23 Lan Ledbetter MD [address] [place] [address] Assigned Heart and Vascular Provider 09/21/23 documented as of this encounter
--- OUTSIDE RECORDS SUMMARY | 2024-03-19 05:18 | XMS_ITS | Encounter Summary ---
Author Organization [facility] Address [address] [place] [address]. [place] [address] Care Team Providers Care Associate Professor Of Archaeology Name Role Phone Ansley Denney MD Primary Care Provider [phone]- [phone] Ansley Denney MD Unavailable +[phone] Lan Ledbetter MD Unavailable +[phone] Donna Hamlin MD Unavailable [phone] Lan Ledbetter MD Unavailable [phone] Donna Hamlin MD Unavailable [phone] Lan Ledbetter MD Unavailable [phone] Odilon Cleaning DO Unavailable +[phone] Lan Ledbetter MD Unavailable [phone] Encounter Details Date Type Department Care Team (Late st Contact Info) Description 11/27/2021 [facility] [facility] [address] [place] [address] S, [place] [address] [place] [phone] Ansley Denney MD [address] [place] [address] 100 [place] [address] Social History Tobacco Use Types Packs/Day Years [...] Travel Start Travel End [place] 02/22/2024 03/07/2024 COVID-19 Exposure Response Date Recorded In the last 10 days, have yo u been in contact with someone who was confirmed or suspected to have Coronavirus/COVID-19? No / Unsure 11/17/2021 7:32 AM CDT documented as of this encounter Plan of Treatment Upcoming Encounters Date Type Department Care Team (Late st Contact Info) Description 05/26/2024 1:00 PM CDT Ancillary Procedure [address], [facility] 110 [place] [address] Nathan Drummond MD [address] [place] [address] 05/26/2024 2:20 PM CDT Office Visit [address] [place] [address] Nathan Drummond MD [address] [place] [address] Odilon Cleaning, DO 1600 [place] [address] documented as of this encounter Visit Diagnoses Not on filedocumented in this encounter Care Teams Associate Professor Of Archaeology Relationship Specialty Start Date End Date Ansley Denney MD [address] [facility] [address] 100 [place] [address] PCP - General Family Medicine 09/13/20 Ansley Denney MD [address] [facility] [address] [place] 100 [place] [address] Assigned PCP 08/14/20 Lan Ledbetter MD [address] [place] [address] Assigned Heart and Vascular Provider 08/02/21 05/08/22 Donna Hamlin MD [address] [facility] [address] 200 [place] [address] Assigned Heart and Vascular Provider 05/09/22 07/24/22 Lan Ledbetter MD [address] [place] [place] [address] Assigned Heart and Vascular Provider 07/25/22 07/31/22 Donna Hamlin MD [address] [facility] [address] 200 [place] [address] Assigned Heart and Vascular Provider 08/01/22 08/21/22 Lan Ledbetter MD [address] [place] [place] [address] Assigned Heart and Vascular Provider 08/22/22 06/21/23 Odilon Cleaning DO [address] [place] [address] Assigned Heart and Vascular Provider 06/22/23 09/20/23 Lan Ledbetter MD [address] [place] [address] Assigned Heart and Vascular Provider 09/21/23 documented as of this encounter
--- OUTSIDE RECORDS SUMMARY | 2024-03-19 05:18 | XMS_ITS | Encounter Summary ---
Author Organization [facility] Address [address] [place] [address]. [place] [address] Care Team Providers Care Human Resources Communications Manager Name Role Phone Ansley Denney MD Primary Care Provider +[phone]- [phone] Ansley Denney MD Unavailable +[phone] Donna Hamlin MD Unavailable [phone] Lan Ledbetter MD Unavailable [phone] Donna Hamlin MD Unavailable [phone] Lan Ledbetter MD Unavailable [phone] Donna Hamlin MD Unavailable [phone] Lan Ledbetter MD Unavailable [phone] Odilon Cleaning DO Unavailable [phone] Lan Ledbetter MD Unavailable [phone] Encounter Details Date Type Department Care Team (Late st Contact Info) Description 12/26/2020 [facility] [facility] [place] [facility] [address] [place] [address] S, [place] [address] [place] [phone] Ansley Denney MD [address] [place] [address] [address] [place] [address] Social History Tobacco Use Types Packs/Day Years [...] Description 05/26/2024 1:00 PM CDT Ancillary Procedure [address], [facility] 110 [place] [address] Nathan Drummond MD [address] [place] [address] 05/26/2024 2:20 PM CDT Office Visit [address] [place] [address] Nathan Drummond MD [address] [place] [address] Odilon Cleaning, DO 1600 [place] [address] documented as of this encounter Visit Diagnoses Not on filedocumented in this encounter Care Teams Human Resources Communications Manager Relationship Specialty Start Date End Date Ansley Denney MD [address] [place] [facility] [place] [address] PCP - General Family Medicine 09/13/20 Ansley Denney MD [address] [place] [address] Assigned PCP 08/14/20 Donna Hamlin MD 1700 [facility] [address] 200 [place] [address] Assigned Heart and Vascular Provider 10/13/20 08/01/21 Lan Ledbetter MD [address] [place] [place] [address] Assigned Heart and Vascular Provider 08/02/21 05/08/22 Donna Hamlin MD 1700 [facility] [address] 200 [place] [address] Assigned Heart and Vascular Provider 05/09/22 07/24/22 Lan Ledbetter MD [address] [place] [address] [place] [address] Assigned Heart and Vascular Provider 07/25/22 07/31/22 Donna Hamlin MD [address]00 [facility] [place] 200 [place] [address] Assigned Heart and Vascular Provider 08/01/22 08/21/22 Lan Ledbetter MD [address] [place] [place] [address] Assigned Heart and Vascular Provider 08/22/22 06/21/23 Odilno Cleaning DO 1600 [facility] [place] [address] Assigned Heart and Vascular Provider 06/22/23 09/20/23 Lan Ledbetter MD [address] [place] [address] Assigned Heart and Vascular Provider 09/21/23 documented as of this encounter
--- OUTSIDE RECORDS SUMMARY | 2024-03-19 05:18 | XMS_ITS | Encounter Summary ---
Author Organization [facility] Address [address] [place] [address]. [place] [address] Care Team Providers Care Family Advocate Name Role Phone Ansley Denney MD Primary Care Provider [phone]- [phone] Ansley Denney MD Unavailable +[phone] Donna Hamlin MD Unavailable [phone] Lan Ledbetter MD Unavailable [phone] Donna Hamlin MD Unavailable [phone] Lan Ledbetter MD Unavailable [phone] Donna Hamlin MD Unavailable [phone] Lan Ledbetter MD Unavailable [phone] Odilon Cleaning DO Unavailable [phone] Lan Ledbetter MD Unavailable [phone] Encounter Details Date Type Department Care Team (Late st Contact Info) Description 10/15/2020 [facility] [address] [place] [address] S, [place] [address] [place] [phone] Ansley Denney MD [address] [place] [address] [address] [place] [address] Social History Tobacco Use Types Packs/Day Years [...] Travel Start Travel End [place] 02/22/2024 03/07/2024 COVID-19 Exposure Response Date Recorded In the last month, have you been in contact with someone who was confirmed or suspected to have Coronavirus / COVID-19? Unable to assess 10/13/2020 10:38 AM CDT documented as of this encounter Plan of Treatment Upcoming Encounters Date Type Department Care Team (Late st Contact Info) Description 05/26/2024 1:00 PM CDT Ancillary Procedure [address] 110 [place] [address] Nathan Drummond MD [address] [place] [address] 05/26/2024 2:20 PM CDT Office Visit [address] [place] [address] Nathan Drummond MD [address] [place] [address] Odilon Cleaning, DO 1600 [place] [address] documented as of this encounter Visit Diagnoses Not on filedocumented in this encounter Care Teams Family Advocate Relationship Specialty Start Date End Date Ansley Denney MD 6936 [facility] 100 [place] [address] PCP - General Family Medicine 09/13/20 Ansley Denney MD [address] [facility] [address] 100 [place] [address] Assigned PCP 08/14/20 Donna Hamlin MD 1700 [facility] [address] 200 [place] [address] Assigned Heart and Vascular Provider 10/13/20 08/01/21 Lan Ledbetter MD [address] [place] [place] [address] Assigned Heart and Vascular Provider 08/02/21 05/08/22 Donna Hamlin MD 1700 [facility] [address] 200 [facility] [place] [address] Assigned Heart and Vascular Provider 05/09/22 07/24/22 Lan Ledbetter MD [address] [place] [address] [place] [address] Assigned Heart and Vascular Provider 07/25/22 07/31/22 Donna Hamlin MD 1700 [facility] [address] 200 [place] [address] Assigned Heart and Vascular Provider 08/01/22 08/21/22 Lan Ledbetter MD [address] [facility] [address] [place] [address] Assigned Heart and Vascular Provider 08/22/22 06/21/23 Odilon Cleaning DO 1600 [place] [address] Assigned Heart and Vascular Provider 06/22/23 09/20/23 Lan Ledbetter MD [address] [address] [place] [address] Assigned Heart and Vascular Provider 09/21/23 documented as of this encounter
--- OUTSIDE RECORDS SUMMARY | 2024-03-19 05:18 | XMS_ITS | Encounter Summary ---
Author Organization [facility] Address [address] [place] [address]. [place] [address] Care Team Providers Care Oil Well Directional Surveyor Name Role Phone Ansley Denney MD Primary Care Provider [phone]- [phone] Ansley Denney MD Unavailable [phone] Lan Ledbetter MD Unavailable Donna Hamlin MD Unavailable [phone] Lan Ledbetter MD Unavailable [phone] Donna Hamlin MD Unavailable [phone] Lan Ledbetter MD Unavailable [phone] Odilon Cleaning DO Unavailable [phone] Lan Ledbetter MD Unavailable [phone] Encounter Details Date Type Department Care Team (Late st Contact Info) Description 08/21/2021 [facility] [place] [facility] [address] [place] [address] S, [address] [place] [phone] Ansley Denney MD [address] [place] [address] 100 [place] [address] Social History Tobacco Use Types Packs/Day Years [...] CDT Travel History Travel Start Travel End [place] 02/22/2024 03/07/2024 COVID-19 Exposure Response Date Recorded In the last 10 days, have yo u been in contact with someone who was confirmed or suspected to have Coronavirus/COVID-19? No / Unsure 08/21/2021 11:52 AM CDT documented as of this encounter Plan of Treatment Upcoming Encounters Date Type Department Care Team (Late st Contact Info) Description 05/26/2024 1:00 PM CDT Ancillary Procedure [address], [place] 110 [place] [address] Nathan Drummond MD [address] [place] [address] 05/26/2024 2:20 PM CDT Office Visit [address] [place] [address] Nathan Drummond MD [address] [place] [address] Odilon Cleaning, DO 1600 [place] [address] documented as of this encounter Visit Diagnoses Not on filedocumented in this encounter Care Teams Oil Well Directional Surveyor Relationship Specialty Start Date End Date Ansley Denney MD 6936 [facility] [address] 100 [place] [address] PCP - General Family Medicine 09/13/20 Ansley Denney MD [address] [facility] [address] [place] [address] Assigned PCP 08/14/20 Lan Ledbetter MD [address] [place] [place] [address] Assigned Heart and Vascular Provider 08/02/21 05/08/22 Donna Hamlin MD 1700 [facility] [address] 200 [place] [address] Assigned Heart and Vascular Provider 05/09/22 07/24/22 Lan Ledbetter MD [address] [place] [place] [address] Assigned Heart and Vascular Provider 07/25/22 07/31/22 Donna Hamlin MD 1700 [facility] [address] 200 [place] [address] Assigned Heart and Vascular Provider 08/01/22 08/21/22 Lan Ledbetter MD [address] [place] [place] [address] Assigned Heart and Vascular Provider 08/22/22 06/21/23 Odilon Cleaning DO 1600 [place] [address] Assigned Heart and Vascular Provider 06/22/23 09/20/23 Lan Ledbetter MD [address] [place] [address] Assigned Heart and Vascular Provider 09/21/23 documented as of this encounter
--- OUTSIDE RECORDS SUMMARY | 2024-03-19 05:18 | XMS_ITS | Encounter Summary ---
Author Organization [facility] Address [address] [place] [address]. [place] [address] Care Team Providers Care Billiard Table Repairer Name Role Phone Ansley Denney MD Primary Care Provider [phone]- [phone] Ansley Denney MD Unavailable [phone] Donna Hamlin MD Unavailable [phone] Lan Ledbetter MD Unavailable [phone] Donna Hamlin MD Unavailable [phone] Lan Ledbetter MD Unavailable [phone] Donna Hamlin MD Unavailable [phone] Lan Ledbetter MD Unavailable [phone] Odilon Cleaning DO Unavailable [phone] Lan Ledbetter MD Unavailable [phone] Encounter Details Date Type Department Care Team (Late st Contact Info) Description 06/11/2021 [facility] [place] [facility] [address] [place] [address] S, [place] [address] [place] [phone] Ansley Denney MD [address] [place] [address] [address] [place] [address] Social History Tobacco Use Types Packs/Day Years [...] Travel History Travel Start Travel End [place] 02/22/2024 03/07/2024 COVID-19 Exposure Response Date Recorded In the last month, have you been in contact with someone who was confirmed or suspected to have Coronavirus / COVID-19? Unable to assess 05/26/2021 3:05 PM CDT documented as of this encounter Plan of Treatment Upcoming Encounters Date Type Department Care Team (Late st Contact Info) Description 05/26/2024 1:00 PM CDT Ancillary Procedure [address] 110 [place] [address] Nathan Drummond MD [address] [place] [address] 05/26/2024 2:20 PM CDT Office Visit [address] [place] [address] Nathan Drummond MD [address] [place] [address] Odilon Cleaning, DO 1600 [place] [address] documented as of this encounter Visit Diagnoses Not on filedocumented in this encounter Care Teams Billiard Table Repairer Relationship Specialty Start Date End Date Ansley Denney MD 6936 [facility] 100 [place] [address] PCP - General Family Medicine 09/13/20 Ansley Denney MD [address] [facility] [address] [place] [address] Assigned PCP 08/14/20 Donna Hamlin MD 1700 [facility] [address] 200 [place] [address] Assigned Heart and Vascular Provider 10/13/20 08/01/21 Lan Ledbetter MD [address] [place] [address] Assigned Heart and Vascular Provider 08/02/21 05/08/22 Donna Hamlin MD 1700 [facility] [address] 200 [facility] [place] [address] Assigned Heart and Vascular Provider 05/09/22 07/24/22 Lan Ledbetter MD [address] [place] [place] [address] Assigned Heart and Vascular Provider 07/25/22 07/31/22 Donna Hamlin MD 1700 [facility] [address] [place] [address] Assigned Heart and Vascular Provider 08/01/22 08/21/22 Lan Ledbetter MD [address] [facility] [address] [place] [address] Assigned Heart and Vascular Provider 08/22/22 06/21/23 Odilon Cleaning DO 1600 [place] [address] Assigned Heart and Vascular Provider 06/22/23 09/20/23 Lan Ledbetter MD [address] [place] [address] [place] [address] Assigned Heart and Vascular Provider 09/21/23 documented as of this encounter
--- OUTSIDE RECORDS SUMMARY | 2024-03-19 05:18 | XMS_ITS | Encounter Summary ---
Author Organization [facility] Address [address] [place] [address] Care Team Providers Care Sales Advisor Name Role Phone Ansley Denney MD Primary Care Provider [phone] Ansley Denney MD Unavailable [phone] Donna Hamlin MD Unavailable [phone] Lan Ledbetter MD Unavailable [phone] Donna Hamlin MD Unavailable [phone] Lan Ledbetter MD Unavailable [phone] Donna Hamlin MD Unavailable [phone] Lan Ledbetter MD Unavailable [phone] Odilon Cleaning DO Unavailable + [phone] Lan Ledbetter MD Unavailable [phone] Reason for Referral * Consultation (Routine) - Closed Specialty Diagnoses / Procedures Referred By Zackary mandel Referred To Contact Gastroenterology Diagnoses Colon cancer screening Ansley Denney MD 1700 [facility] [address] [place] [address] Phone: tel: fax: [facility] [address] [place] [address] Phone: tel: Referral ID Status Reason Start Date Expiration Date Visits Re quested Visits Authorized [id number] Closed 12/11/2020 12/11/2021 1 1 Scheduling Instructions If EUS or ERCP is selected, it requires clinical review prior to scheduling. Question Answer Procedure: Lower Endoscopy Preferred Location: External Affiliated Partners External Affiliated Partner Location: [facility] ER: [facility] Digestive Health - Various Locations N: [facility] Digestive Health: N: [facility] - [place] Non-internal location selection reason: Location Scheduling Instructions: Please call to schedule your appointment Class External referral [5] Comments Please be aware that coverage of these services is subject to the terms and limitations of your health insurance plan. Call member services at your health plan with any benefit or coverage questions. Please call to schedule your appointment Encounter Details Date Type Department Care Team (Late Contact Info) Description 11/01/2020 [facility] [address], [address] [place] [address] Ansley Denney MD [address] [place] [address] Colon cancer screening (Primary Dx) Social History Tobacco Use Types Packs/Day Years [...] Travel Start Travel End [place] 02/22/2024 03/07/2024 COVID-19 Exposure Response Date Recorded In the last month, have you been in contact with someone who was confirmed or suspected to have Coronavirus / COVID-19? No / Unsure 10/23/2020 9:25 AM CDT documented as of this encounter Plan of Treatment Upcoming Encounters Date Type Department Care Team (Late Contact Info) Description 05/26/2024 1:00 PM CDT Ancillary Procedure [facility] [address] [facility], [address] [place] [address] Nathan Drummond MD [address]09 [place] [address] 05/26/2024 2:20 PM CDT Office Visit [facility] [address] [facility] [address] [place] [address] Nathan Drummond MD [address]09 [place], [place] [address] Odilon Cleaning, DO 1600 [place] [address] Scheduled Referrals Name Type Priority Associated Diagnoses Orde r Schedule Adult Gastro Ref - Procedure Only Referral Routine: Next available opening Colon cancer screening Expected: 12/11/2020 (Approximate), Expires: 12/11/2021 documented as of this encounter Visit Diagnoses Diagnosis Colon cancer screening- Primary Special screening for malignant neoplasms, colon documented in this encounter Care Teams Sales Advisor Relationship Specialty Start Date End Date Ansley Denney MD 6936 [facility] 100 [place] [address] PCP - General Family Medicine 09/13/20 Ansley Denney MD [address] [facility] [address] 100 [place] [address] Assigned PCP 08/14/20 Donna Hamlin MD 1700 [facility] 200 [place] [address] Assigned Heart and Vascular Provider 10/13/20 08/01/21 Lan Ledbetter MD [address] [place] [address] Assigned Heart and Vascular Provider 08/02/21 05/08/22 Donna Hamlin MD 1700 [facility] [address] 200 [place] [address] Assigned Heart and Vascular Provider 05/09/22 07/24/22 Lan Ledbetter MD [address] [place] [address] Assigned Heart and Vascular Provider 07/25/22 07/31/22 Donna Hamlin MD 1700 [facility] [address] [place] [address] Assigned Heart and Vascular Provider 08/01/22 08/21/22 Lan Ledbetter MD [address] [place] [address] Assigned Heart and Vascular Provider 08/22/22 06/21/23 Odilon Cleaning DO 1600 [facility] [place] [address] Assigned Heart and Vascular Provider 06/22/23 09/20/23 Lan Ledbetter MD [address] [place] [address] Assigned Heart and Vascular Provider 09/21/23 documented as of this encounter
--- OUTSIDE RECORDS SUMMARY | 2024-03-19 05:18 | XMS_ITS | Encounter Summary ---
Author Organization [facility] Address Replaced by [facility] [place] [address] Care Team Providers Care Assistant Men'S Lacrosse Coach Name Role Phone Ansley Denney MD Primary Care Provider [phone] Ansley Denney MD Unavailable [phone] Donna Hamlin MD Unavailable [phone] Lan Ledbetter MD Unavailable [phone] Donna Hamlin MD Unavailable [phone] Lan Ledbetter MD Unavailable [phone] Donna Hamlin MD Unavailable [phone] Lan Ledbetter MD Unavailable [phone] Odilon Cleaning DO Unavailable [phone] Lan Ledbetter MD Unavailable [phone] Encounter Details Date Type Department Care Team (Late st Contact Info) Description 01/29/2021 [facility] [place] [address] [place] [phone] Donna Hamlin MD 1700 [facility] [address] 200 [place], [place] [address] Social History Tobacco Use Types Packs/Day Years [...] have Coronavirus / COVID-19? No / Unsure 01/28/2021 1:28 PM MAGNETO REPAIRER documented as of this encounter Plan of Treatment Upcoming Encounters Date Type Department Care Team (Late st Contact Info) Description 05/26/2024 1:00 PM CDT Ancillary Procedure [address] 110 [place] [address] Nathan Drummond MD [address] [place] [address] 05/26/2024 2:20 PM CDT Office Visit [address] [place] [address] Nathan Drummond MD [address] [place] [address] Odilon Cleaning, DO 1600 [place] [address] documented as of this encounter Visit Diagnoses Not on filedocumented in this encounter Care Teams Assistant Men'S Lacrosse Coach Relationship Specialty Start Date End Date Ansley Denney MD [address] [facility] [address] 100 [place] [address] PCP - General Family Medicine 09/13/20 Ansley Denney MD [address] [facility] [address] [place] [address] Assigned PCP 08/14/20 Donna Hamlin MD 1700 [facility] [address] [place] [address] Assigned Heart and Vascular Provider 10/13/20 08/01/21 Lan Ledbetter MD [address] [place] [address] Assigned Heart and Vascular Provider 08/02/21 05/08/22 Donna Hamlin MD 1700 [facility] [address] [place] [address] Assigned Heart and Vascular Provider 05/09/22 07/24/22 Lan Ledbetter MD [address] [place] [address] Assigned Heart and Vascular Provider 07/25/22 07/31/22 Donna Hamlin MD 1700 [facility] [address] [place] [address] Assigned Heart and Vascular Provider 08/01/22 08/21/22 Lan Ledbetter MD [address] [place] [place] [address] Assigned Heart and Vascular Provider 08/22/22 06/21/23 Odilon Cleaning DO [address] [facility] [place] [address] Assigned Heart and Vascular Provider 06/22/23 09/20/23 Lan Ledbetter MD [address] [place] [address] [place] [address] Assigned Heart and Vascular Provider 09/21/23 documented as of this encounter
--- OUTSIDE RECORDS SUMMARY | 2024-03-19 05:18 | XMS_ITS | Encounter Summary ---
Author Organization [place] Address [address] [place] [address]. [place] [address] Care Team Providers Care Recovery Engineer Name Role Phone Ansley Denney MD Primary Care Provider [phone] Ansley Denney MD Unavailable [phone] Donna Hamlin MD Unavailable [phone] Lan Ledbetter MD Unavailable [phone] Donna Hamlin MD Unavailable [phone] Lan Ledbteter MD Unavailable [phone] Donna Hamlin MD Unavailable [phone] Lan Ledbetter MD Unavailable [phone] Odilon Cleaning DO Unavailable [phone] Lan Ledbetter MD Unavailable [phone] Encounter Details Date Type Department Care Team (Late st Contact Info) Description 12/12/2014 Records - [facility] CONVERSION Scan, Non-Provider Social History Tobacco Use Types Packs/Day Years Used Date Smoking Tobacco: Never Assessed Sex and Gender Information Value Date Recorded Sex Assigned at Not on file Legal Sex Male 5:14 PM CDT Gender Identity Not on file Sexual Orientation Straight 08/09/2023 8: 33 AM CDT Travel History Travel Start Travel End [place] 02/22/2024 03/07/2024 documented as of this encounter Plan of Treatment Upcoming Encounters Date Type Department Care Team (Late st Contact Info) Description 05/26/2024 1:00 PM CDT Ancillary Procedure [facility] [address] [facility], [address] [place] [phone] Nathan Drummond MD [address] [place] [address] 05/26/2024 2:20 PM CDT Office Visit [facility] [address] [facility] [address] [place] [phone] Nathan Drummond MD [address] [place] [address] Odilon Cleaning, DO [address] [place] [address] documented as of this encounter Visit Diagnoses Not on filedocumented in this encounter Care Teams Recovery Engineer Relationship Specialty Start Date End Date Ansley Denney MD [address] [facility] 100 [place] [address] PCP - General Family Medicine 09/13/20 Ansley Denney MD [address] [facility] 100 [place] [address] Assigned PCP 08/14/20 Donna Hamlin MD 1700 [facility] 200 [place] [address] Assigned Heart and Vascular Provider 10/13/20 08/01/21 Lan Ledbetter MD [address] [facility] 340 [place] [address] Assigned Heart and Vascular Provider 08/02/21 05/08/22 Donna Hamlin MD [address] [facility] [address] 200 [place] [address] Assigned Heart and Vascular Provider 05/09/22 07/24/22 Lan Ledbetter MD [address] [place] [address] Assigned Heart and Vascular Provider 07/25/22 07/31/22 Donna Hamlin MD [address] [facility] [address] 200 [place] [address] Assigned Heart and Vascular Provider 08/01/22 08/21/22 Lan Ledbetter MD [address] [facility] 340 [place] [address] Assigned Heart and Vascular Provider 08/22/22 06/21/23 Odilon Cleaning DO [address] [place] [address] Assigned Heart and Vascular Provider 06/22/23 09/20/23 Lan Ledbetter MD [address] [place] [address] [place] [address] Assigned Heart and Vascular Provider 09/21/23 documented as of this encounter
--- OUTSIDE RECORDS SUMMARY | 2024-03-19 05:18 | XMS_ITS | Encounter Summary ---
Author Organization [place] Address [address] [place] [address]. [place] [address] Care Team Providers Care Greens Planter Name Role Phone Ansley Denney MD Primary Care Provider [phone] Ansley Denney MD Unavailable [phone] Lan Ledbetter MD Unavailable Donna Hamlin MD Unavailable [phone] Lan Ledbetter MD Unavailable [phone] Donna Hamlin MD Unavailable [phone] Lan Ledbetter MD Unavailable [phone] Odilon Cleaning DO Unavailable [phone] Lan Ledbetter MD Unavailable [phone] Reason for Visit * Reason Comments Medication Refill Encounter Details Date Type Department Care Team (Late st Contact Info) Description 12/05/2021 [facility] [address] [facility] [address] [place] [phone] Donna Hamlin MD 1700 [facility] [place] 200 [place], [place] [id number] Medication Refill Social History Tobacco Use Types [...] Travel Start Travel End [place] 02/22/2024 03/07/2024 COVID-19 Exposure Response Date Recorded In the last 10 days, have yo u been in contact with someone who was confirmed or suspected to have Coronavirus/COVID-19? No / Unsure 11/17/2021 7:32 AM CDT documented as of this encounter Plan of Treatment Upcoming Encounters Date Type Department Care Team (Late st Contact Info) Description 05/26/2024 1:00 PM CDT Ancillary Procedure [address] [phone] Nathan Drummond MD [address] [place] [address] 05/26/2024 2:20 PM CDT Office Visit [address] [place] [phone] Nathan Drummond MD [address] [place] [address] Odilon Cleaning, DO 1600 [place] [address] documented as of this encounter Visit Diagnoses Diagnosis Benign essential hypertension Essential hypertension, benign 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, abdominal documented in this encounter Care Teams Greens Planter Relationship Specialty Start Date End Date Ansley Denney MD [address] [facility] [address] 100 [place] [address] PCP - General Family Medicine 09/13/20 Ansley Denney MD [address] [facility] 100 [place] [address] Assigned PCP 08/14/20 Lan Ledbetter MD [address] [place] [address] [place] [address] Assigned Heart and Vascular Provider 08/02/21 05/08/22 Donna Hamlin MD 1700 [facility] 200 [place] [address] Assigned Heart and Vascular Provider 05/09/22 07/24/22 Lan Ledbetter MD [address] [place] [address] [place] [address] Assigned Heart and Vascular Provider 07/25/22 07/31/22 Donna Hamlin MD 17[address] [facility] [place] 200 [place] [address] Assigned Heart and Vascular Provider 08/01/22 08/21/22 Lan Ledbetter MD [address] [place] [address] [place] [address] Assigned Heart and Vascular Provider 08/22/22 06/21/23 Odilon Cleaning DO 1600 [place] [address] Assigned Heart and Vascular Provider 06/22/23 09/20/23 Lan Ledbetter MD [address] [place] [address] [place] [address] Assigned Heart and Vascular Provider 09/21/23 documented as of this encounter
--- OUTSIDE RECORDS SUMMARY | 2024-03-19 05:18 | XMS_ITS | Encounter Summary ---
Author Organization [place] Address [address] [place] [address]. [place] [address] Care Team Providers Care Affirmative Action Specialist Name Role Phone Ansley Denney MD Primary Care Provider [phone] Ansley Denney MD Unavailable [phone] Donna Hamlin MD Unavailable [phone] Lan Ledbetter MD Unavailable [phone] Donna Hamlin MD Unavailable [phone] Lan Ledbetter MD Unavailable [phone] Donna Hamlin MD Unavailable [phone] Lan Ledbetter MD Unavailable [phone] Odilon Cleaning DO Unavailable [phone] Lan Ledbetter MD Unavailable [phone] Reason for Visit * Reason Comments Medication Refill Encounter Details Date Type Department Care Team (Late st Contact Info) Description 03/31/2021 Refill [facility] [place] [address] [place] [address] [place], [address] [place] [phone] Ansley Denney MD 6936 [facility] 100 [place] [address] Medication Refill Social History Tobacco Use Types [...] Travel Start Travel End [place] 02/22/2024 03/07/2024 documented as of this encounter Plan of Treatment Upcoming Encounters Date Type Department Care Team (Late st Contact Info) Description 05/26/2024 1:00 PM CDT Ancillary Procedure [address], [facility] 110 [place] [address] Nathan Drummond MD [address] [place] [address] 05/26/2024 2:20 PM CDT Office Visit [address] [place] [phone] Nathan Drummond MD [address] [place] [address] Odilon Cleaning, DO 1600 [place] [address] documented as of this encounter Visit Diagnoses Diagnosis Hyperlipidemia, unspecified documented in this encounter Care Teams Affirmative Action Specialist Relationship Specialty Start Date End Date Ansley Denney MD [address] [place] [address] PCP - General Family Medicine 09/13/20 Ansley Denney MD [address] [place] [address] Assigned PCP 08/14/20 Donna Hamlin MD [address] [facility] [address] 200 [place] [address] Assigned Heart and Vascular Provider 10/13/20 08/01/21 Lan Ledbetter MD [address] [place] [address] [place] [address] Assigned Heart and Vascular Provider 08/02/21 05/08/22 Donna Hamlin MD [address] [facility] [place] [address] [place] [address] Assigned Heart and Vascular Provider 05/09/22 07/24/22 aLn Ledbetter MD [address] [place] [address] [place] [address] Assigned Heart and Vascular Provider 07/25/22 07/31/22 Donna Hamlin MD [address] [facility] [address] [place], [place] [address] Assigned Heart and Vascular Provider 08/01/22 08/21/22 Lan Ledbetter MD [address] [place] [address] [place] [address] Assigned Heart and Vascular Provider 08/22/22 06/21/23 Odilon Cleaning DO [address] [place] [address] Assigned Heart and Vascular Provider 06/22/23 09/20/23 Lan Ledbetter MD [address] [facility] [address] [place] [address] Assigned Heart and Vascular Provider 09/21/23 documented as of this encounter
--- OUTSIDE RECORDS SUMMARY | 2024-03-19 05:18 | XMS_ITS | Encounter Summary ---
Author Organization [place] Address [address] [place] [address]. [place] [address] Care Team Providers Care Wound Care Nurse Name Role Phone Ansley Denney MD Primary Care Provider [phone] Ansley Denney MD Unavailable [phone] Donna Hamlin MD Unavailable [phone] Lan Ledbetter MD Unavailable [phone] Donna Hamlin MD Unavailable [phone] Lan Ledbetter MD Unavailable [phone] Donna Hamlin MD Unavailable [phone] Lan Ledbetter MD Unavailable [phone] Odilon Cleaning DO Unavailable [phone] Lan Ledbetter MD Unavailable [phone] Encounter Details Date Type Department Care Team (Late st Contact Info) Description 10/10/2020 [facility] Medical Advice [facility] [address] [place] [address] [address], [address] [place] [phone] Ansley Denney MD [address] [place] [address] [address] [place] [address] Social History Tobacco Use Types Packs/Day Years [...] Travel Start Travel End [place] 02/22/2024 03/07/2024 COVID-19 Exposure Response Date Recorded In the last month, have you been in contact with someone who was confirmed or suspected to have Coronavirus / COVID-19? Unable to assess 10/13/2020 10:38 AM CDT documented as of this encounter Plan of Treatment Upcoming Encounters Date Type Department Care Team (Late st Contact Info) Description 05/26/2024 1:00 PM CDT Ancillary Procedure [address] 110 [place] [address] Nathan Drummond MD [address] [place] [address] 05/26/2024 2:20 PM CDT Office Visit [address] [place] [address] Nathan Drummond MD [address] [place] [address] Odilon Cleaning, DO 1600 [place] [address] documented as of this encounter Visit Diagnoses Not on filedocumented in this encounter Care Teams Wound Care Nurse Relationship Specialty Start Date End Date Ansley Denney MD [address] [facility] 100 [place] [address] PCP - General Family Medicine 09/13/20 Ansley Denney MD [address] [facility] [address] [place] [address] Assigned PCP 08/14/20 Donna Hamlin MD 1700 [facility] [address] 200 [place] [address] Assigned Heart and Vascular Provider 10/13/20 08/01/21 Lan Ledbetter MD [address] [place] [place] [address] Assigned Heart and Vascular Provider 08/02/21 05/08/22 Donna Hamlin MD [address] [facility] [address] 200 [facility] [place] [address] Assigned Heart and Vascular Provider 05/09/22 07/24/22 Lan Ledbetter MD [address] [place] [address] [place] [address] Assigned Heart and Vascular Provider 07/25/22 07/31/22 Donna Hamlin MD [address] [facility] [address] [place] [address] Assigned Heart and Vascular Provider 08/01/22 08/21/22 Lan Ledbetter MD [address] [facility] [address] [place] [address] Assigned Heart and Vascular Provider 08/22/22 06/21/23 Odilon Cleaning DO [address] [place] [address] Assigned Heart and Vascular Provider 06/22/23 09/20/23 Lan Ledbetter MD [address] [place] [address] [place] [address] Assigned Heart and Vascular Provider 09/21/23 documented as of this encounter
--- OUTSIDE RECORDS SUMMARY | 2024-03-19 05:18 | XMS_ITS | Encounter Summary ---
Author Organization [place] Address [address] [place] [address] Care Team Providers Care Mail Clerk Name Role Phone Ansley Denney MD Primary Care Provider [phone] Ansley Denney MD Unavailable [phone] Donna Hamlin MD Unavailable [phone] Lan Ledbetter MD Unavailable [phone] Donna Hamlin MD Unavailable [phone] Lan Ledbetter MD Unavailable [phone] Donna Hamlin MD Unavailable [phone] Lan Ledbetter MD Unavailable [phone] Odilon Cleaning DO Unavailable [phone] Lan Ledbetter MD Unavailable [phone] Reason for Referral * CV Cardio consult (Routine) - Closed Specialty Diagnoses / Procedures Referred By Contac t Referred To Contact Cardiovascular Disease Diagnoses Abnormal echocardiogram Syncope, unspecified syncope type Ansley Denney MD [address] [facility] [address] [address] [place] [address] Phone: tel: fax: Referral ID Status Reason Start Date Expiration Date Visits Re quested Visits Authorized [id number] Closed 09/25/2020 09/25/2021 1 1 Question Answer Preferred Location: [facility] Scheduling Instructions: [employer] will call you to coordinate your care as prescribed by the provider. If you don t hear from a retail representative within 2 business days, please call the number listed above. Reason for Consult: General Cardiology Consult Type: Evaluation and Medical Management (Until stable) Comments Please be aware that coverage of these services is subject to the terms and limitations of your health insurance plan. Call member services at your health plan with any benefit or coverage questions. [employer] will call you to coordinate your care as prescribed by the provider. If you don t hear from a retail representative within 2 business days, please call the number listed above. Encounter Details Date Type Department Care Team (Late st Contact Info) Description 09/25/2020 [facility] Medical Advice [address] [place] [phone] Ansley Denney MD [address] [place] [address] Abnormal echocardiogram (Primary Dx); Syncope, unspecified syncope type Social History Tobacco Use Types Packs/Day Years [...] Travel Start Travel End [place] 02/22/2024 03/07/2024 COVID-19 Exposure Response Date Recorded In the last month, have you been in contact with someone who was confirmed or suspected to have Coronavirus / COVID-19? No / Unsure 09/25/2020 10:31 AM CDT documented as of this encounter Miscellaneous Notes * Telephone Encounter - Ansley Denney MD - 09/26/2020 11:21 AM CDT Addressed with phone call to the patient. He did have one dropped heart beat with a 4 second pause. This with the valvular disease, dilation of the RA and LA will refer to cardiology for further evaluation. Patient is comfortable with this. documented in this encounter Plan of Treatment Upcoming Encounters Date Type Department Care Team (Late st Contact Info) Description 05/26/2024 1:00 PM CDT Ancillary Procedure [address], [facility] 110 [place] [address] Nathan Drummond MD [address] [place] [address] 05/26/2024 2:20 PM CDT Office Visit [address] [place] [address] Nathan Drummond MD [address] [place] [address] Odilon Cleaning, DO 1600 [place] [address] Scheduled Referrals Name Type Priority Associated Diagnoses Orde r Schedule Adult Cardiology Eval Referral Referral Routine Abnormal echocardiogram Syncope, unspecified syncope type Expected: 09/25/2020 (Approximate), Expires: 09/25/2021 documented as of this encounter Visit Diagnoses Diagnosis Abnormal echocardiogram- Primary Nonspecific (abnormal) findings on radiological and other examination of other intrathoracic organs Syncope, unspecified syncope type documented in this encounter Care Teams Mail Clerk Relationship Specialty Start Date End Date Ansley Denney MD [address] [facility] [address] [place] [address] [place] [address] PCP - General Family Medicine 09/13/20 Ansley Denney MD [address] [facility] [address] [place] [place] [address] Assigned PCP 08/14/20 Donna Hamlin MD [address]00 [facility] [address] 200 [place] [address] Assigned Heart and Vascular Provider 10/13/20 08/01/21 Lan Ledbetter MD [address] [place] [address] [place] [address] Assigned Heart and Vascular Provider 08/02/21 05/08/22 Donna Hamlin MD [address] [facility] [address] [place] [address] Assigned Heart and Vascular Provider 05/09/22 07/24/22 Lan Ledbetter MD [address] [place] [place] [address] Assigned Heart and Vascular Provider 07/25/22 07/31/22 Donna Hamlin MD [address] [facility] [address] [place] [address] Assigned Heart and Vascular Provider 08/01/22 08/21/22 Lan Ledbetter MD [address] [place] [place] [address] Assigned Heart and Vascular Provider 08/22/22 06/21/23 Odilon Cleaning DO [address] [place] [address] Assigned Heart and Vascular Provider 06/22/23 09/20/23 Lan Ledbetter MD [address] [place] [address] [place] [address] Assigned Heart and Vascular Provider 09/21/23 documented as of this encounter
--- OUTSIDE RECORDS SUMMARY | 2024-03-19 05:19 | XMS_ITS | Continuity of Care Document ---
Author Organization [facility] Address [address] [address] [place] [address] Phone Care Team Providers Care Magician/Illusionist Name Role Phone Jigar Garcia CRNA Unavailable Allergies, Adverse Reactions, Alerts Substance Reaction Status Criticality PENICILLIN HivesHives Active No Information Medications Medication Instructions Dosage Effective Dates (start - stop) Status Comments famotidine 20 mg tablet take 2 Tablet by oral route every bedtime 40 MG - Active glucosamine-chondroit in 500 mg-400 mg tablet take 3 Tablet by Oral route every day 3 Tablet - Active lisinopril 5 mg tablet take 1 tablet by oral route every day 5 MG - Active sumatriptan 100 mg tablet take 1 tablet by oral route once with fluids as early as possible after the onset of a migraine attack;may repeat after 2 hours if headache returns, not to exceed 200mgin 24hrs 100 MG - Active atorvastatin 20 mg tablet take 1 Tablet by ORAL route every day 20 MG - Active Procedures Procedure Date Colonoscopy Flex; W/remov Les- Level Iv-surg Path Gross/micro Advance Directives Directive Yes / No Effective Date File Name No Information Encounters Encounter Description Practice Location Reason(s) For Visit Diagnoses Date Provider Providers Copied on Encounter [facility], [address] [address], [place], [id number], [place] tel:[phone] Hussein [facility] No Information 2 Jose Kimball. [address] [facility] [address], [place], [place], [id number] , [place]. tel:[phone] Referring Provider: Jorge Luis Hoover MD, [address] [facility] [address], [place], [address] . tel:[phone] [facility], [address] [address], [place], [place], [id number], [place] tel:[phone] [facility] GI Symptoms or Concerns (chief complaint) Colorectal polyp detected on colonoscopyHypertro phied anal papillaEncounter for screening for malignant neoplasm of colonBenign neoplasm of transverse colonBenign neoplasm of transverse colon 2 Kiko Kang. [address] [facility] [address], [place], [place], [id number] , [place]. tel:[phone] Referring Provider: Referral Self, USE FOR SELF REFERRALS. [facility], [address] [address], [place], [place], [id number], [place] tel:[phone] [facility] No Information 2 Faustino Paulino. [address] [facility], [facility] [address], [place], [place], [id number] , [place]. tel:[phone] Family History Family Member Type Diagnosis Age At Onset Father Problem (finding) diverticulitis of colon Immunizations Vaccine Date Status Comments SARS-COV-2 (COVID-19) vaccin e, mRNA, spike protein, LNP, preservative free, 30 mcg/0.3mL dose administered Note: [facility] bi-direct ional interface ; Source: Other Registry influenza, high-dose seasona l, quadrivalent, .7mL dose, preservative free administered Note: [facility] bi-direct ional interface ; Source: Other Registry SARS-COV-2 (COVID-19) vaccin e, mRNA, spike protein, LNP, preservative free, 30 mcg/0.3mL dose administered Note: [facility] bi-direct ional interface ; Source: Other Registry SARS-COV-2 (COVID-19) vaccin e, mRNA, spike protein, LNP, preservative free, 30 mcg/0.3mL dose administered Note: [facility] bi-direct ional interface ; Source: Other Registry influenza, high-dose seasona l, quadrivalent, .7mL dose, preservative free administered Note: [facility] bi-direct ional interface ; Source: Other Registry zoster vaccine recombinant administered N ote: [facility] bi-directional interface ; Source: Other Registry influenza, high dose seasona l, preservative-free administered Note: [facility] bi-direct ional interface ; Source: Other Registry zoster vaccine recombinant administered N ote: [facility] bi-directional interface ; Source: Other Registry Afluria Qd administered Note: [facility] bi-directional interface ; Source: Other Registry Influenza, seasonal, injecta ble, preservative free administered Note: [facility] bi-direct ional interface ; Source: Other Registry Pneumovax 23 administered Note: [facility] bi-d irectional interface ; Source: Other Registry Prevnar 13 administered Note: [facility] bi-d irectional interface ; Source: Other Registry zoster vaccine, live administered Note: [facility] bi-directional interface ; Source: Other Registry tetanus toxoid, reduced diphtheria toxoid, and acellular pertussis vaccine, adsorbed administered Note: [facility] b i-directional interface ; Source: Other Registry Influenza, seasonal, injectable administe red Note: [facility] bi- directional interface ; Source: Other Registry Influenza, seasonal, injectable administe red Note: [facility] bi- directional interface ; Source: Other Registry Payers Payer name Insurance type Covered green party ID Authoriza tion(s) [employer] [place] Blue BL [id number] Social History Type Description Quantity Date Captured Comments Sex Male Smoking Status No Information Chief Complaint And Reason For Visit No Information Reason For Referral Reason For Referral No Information History Of Present Illness Encounter Date Complaint History Of Prese nt Illness GI Symptoms or Concerns Functional Status Date Functional Assessmen t No Information Instructions Date Instruction Additional Infor mitch Colon Cancer Prevention Related to Colorectal polyp detected on colonoscopy Colon Polyps Related to Color ectal polyp detected on colonoscopy Assessments Type Assessment Date No Information Patient Care Teams Name Effective Dates (start - stop) Status Members No Information
== END 2024-03-19 05:27 | disposition home or self-care (01) ==
LOC: ED 05:14
PROVIDERS: Emergency Provider Family Medicine
DX: N30.01 Acute cystitis with hematuria (principal)
CPT/HCPCS: 81001; 87086; 87186; 99283